=== PATIENT | female | born 1970 | race Caucasian/White ===

== ENCOUNTER 2017-03-21 14:50 | Inpatient (IN) | payer OTHER ==
[2017-03-21] MEDS ORDERED: Sodium Chloride 0.9% 1,000 ML IV ONE ×2 (15:43→16:49)
[2017-03-21] MEDS ORDERED: diphenhydrAMINE 50 MG/ML SDV IVPUSH ONE (15:43)
[2017-03-21] MEDS ORDERED: methylPREDNISolone Sodium Succinate 125 MG/2 ML SDV IVPUSH ONE (15:44)
--- NOTE | 2017-03-21 15:50 | EDM.PDOC ---
ED HPI GENERAL MEDICAL PROBLEM - General Chief Complaint: Neurological Problem Stated Complaint: [facility] Time Seen by Provider: 03/21/17 14:57 Source of Information: Reports: Patient, EMS, Family History Limitations: Reports: Altered Mental Status - History of Present Illness INITIAL COMMENTS - FREE TEXT/NARRATIVE: the patient is a 47-year-old female brought in by ambulance for an episode of syncope and altered mental status. She has a history of chronic neck pain and migraines but is otherwise healthy. She has been on light duty at her job at the [employer], where her also works. She states that she felt fine yesterday. This morning at work she had a migraine headache and took intramuscular sumatriptan. Sometime after this, she walked into her office and told him that she did not feel well. She sat down in his office. He states that gradually, over the course of about 15 minutes she became less responsive, seemed "out of it", had slowed breathing, and also looked dusky. He called for help. At some point she became completely unresponsive but was still breathing with snoring respirations and had a pulse. According to EMS, her oxygen saturation was in the 90s and a respiratory rate was around 12 when they first arrived. She was hypotensive with a blood pressure of 70/30.they started an IV and gave 2 mg of IV Narcan. There was not an immediate response. However on the way in, the patient did become more alert. Her blood pressure also improved. They did have fluids infusing. Patient states that she feels queasy now, she did vomit once here, and feels generally poorly and continues to have neck pain but no other complaint. No headache now. No chest pain or shortness of breath. Mild abdominal discomfort but not significant pain. No lower extremity pain or swelling. Denies history of similar symptoms previously. States that she has not had any of her hydrocodone today. She states that she takes this medication for her neck pain only at night, one tablet before bed. denies ingestion of any other medication today. no recent alcohol. No recent illness or injury. Neck Pain Score (Numeric/FACES): 8 Headache Pain Score (Numeric/FACES): 7 - Related Data Allergies Allergy/AdvReac Type Severity Reaction Status Date / Time No Known Allergies Allergy Verified 03/21/17 20:54 Home Meds: Home Meds Biotin 10,000 mcg PO DAILY 03/21/17 [History] Fexofenadine [Lianna] 180 mg PO DAILY 03/21/17 [History] Hydrocodone/Acetaminophen [Hydrocodon-Acetaminophen 5-325] 1 tab PO ASDIRECTED PRN 03/21/17 [History] L.acidoph,Paracasei, B.lactis [Probiotic] 1 each PO DAILY 03/21/17 [History] Multivitamin with Minerals [Hair, Skin and Nails] 1 tab PO DAILY 03/21/17 [ History] Naproxen Sodium [Aleve] 440 mg PO Q4H PRN 03/21/17 [History] SUMAtriptan [Imitrex] 1 injection SUBCUT ASDIRECTED PRN 03/21/17 [History] Past Medical History HEENT History: Reports: Impaired 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 ENGLISH History: Reports: , Spontaneous Other OB/BYN History: 5x Musculoskeletal History: Reports: Osteoarthritis Neurological History: Reports: Migraines - Past Surgical History HEENT Surgical History: Reports: Tonsillectomy Social & Family History - Family History Family Medical History: Noncontributory - Tobacco Use Smoking Status *Q: Never Smoker Second Hand Smoke Exposure: No - Caffeine Use Caffeine Use: Reports: Coffee - Alcohol Use Days Per Week of Alcohol Use: 0 - Recreational Drug Use Recreational Drug Use: No ED ROS GENERAL - Review of Systems Review Of Systems: See Below Constitutional: Reports: Malaise, Weakness, Fatigue. Denies: Fever HEENT: Reports: No Symptoms Respiratory: Denies: Shortness of Breath, Cough Cardiovascular: Denies: Chest Pain Endocrine: Reports: Fatigue GI/Abdominal: Reports: Nausea : Reports: No Symptoms. Denies: Dysuria, Irregular Menses Musculoskeletal: Reports: Neck Pain Skin: Reports: No Symptoms Neurological: Reports: Headache, Syncope Psychiatric: Reports: No Symptoms Hematologic/Lymphatic: Denies: Easy Bleeding Immunologic: Reports: No Symptoms - Physical Exam Exam: See Below Exam Limited By: No Limitations General Appearance: Alert, Other (mild distress, uncomfortable appearing) Eye Exam: Bilateral Eye: Normal Inspection, PERRL (pupils about 2 mm) Ears: Normal External Exam Nose: Normal Inspection, Normal Mucosa, No Blood Throat/Mouth: Normal Inspection, Normal Lips, Normal Teeth, Normal Gums, Normal Oropharynx, Normal Voice, No Airway Compromise Head Exam: Atraumatic, Normocephalic Neck: Normal Inspection Respiratory/Chest: No Respiratory Distress, Lungs Clear, Normal Breath Sounds, Chest Non-Tender Cardiovascular: Normal Peripheral Pulses, Regular Rate, Rhythm, No Edema, No Murmur GI/Abdominal: Soft, Non-Tender, No Distention. No: Rebound Neuro Exam (Abbreviated): Alert, Oriented, CN II-XII Intact, Normal Cognition, No Motor/Sensory Deficits Back Exam: Normal Inspection Extremities: Normal Inspection Psychiatric: Normal Affect, Normal Mood Skin Exam: Warm, Dry, Intact, Normal Color, No Rash Course - Vital Signs Last Recorded V/S: Last Vital Signs Temp 36.8 C 03/22/17 08:26 Pulse 66 03/22/17 08:26 Resp 15 03/22/17 08:26 BP 134/66 03/22/17 08:26 Pulse Ox 99 03/22/17 08:26 - Orders/Labs/Meds Orders: Active Orders 24 hr Category Date Time Status Sodium Chloride 0.9% [Saline Flush] Med 03/21/17 16:57 Active 10 ml FLUSH ONETIME PRN Medication Orders Hydrocodone Bitart/Acetaminophen ([place] 325-10 Mg) 1 tab PO Q6H PRN PRN Reason: Pain (moderate 4-6) Last Admin: 03/21/17 21:53 Dose: 1 tab Enoxaparin Sodium (Lovenox) 40 mg SUBCUT DAILY GIL Last Admin: 03/22/17 08:05 Dose: 40 mg Hydromorphone HCl (Dilaudid) 0.5 mg IVPUSH Q4H PRN PRN Reason: Pain Sodium Chloride (Saline Flush) 10 ml FLUSH ONETIME PRN PRN Reason: IV FLUSH Last Admin: 03/21/17 17:28 Dose: 10 ml Sumatriptan Succinate (Imitrex) 50 mg PO Q2H PRN PRN Reason: Headache Last Admin: 03/22/17 08:01 Dose: 50 mg Labs: Laboratory Tests 03/21/17 03/21/17 03/21/17 Range/Units 16:10 16:10 16:10 WBC 12.97 H (3.98-10.04) K/mm3 RBC 4.63 (3.98-5.22) M/mm3 Hgb 13.3 (11.2-15.7) gm/L Hct 40.7 (34.1-44.9) % MCV 87.9 (79.4-94.8) fl MCH 28.7 (25.6-32.2) pg MCHC 32.7 (32.2-35.5) g/dl RDW Std Deviation 43.9 (36.4-46.3) fL Plt Count 185 (182-369) K/mm3 MPV 11.6 (9.4-12.3) fl Neut % (Auto) 85.8 H (34.0-71.1) % Lymph % (Auto) 10.9 L (19.3-51.7) % [place] % (Auto) 2.5 L (4.7-12.5) % Eos % (Auto) 0.5 L (0.7-5.8) Baso % (Auto) 0.1 (0.1-1.2) % Neut # (Auto) 11.14 H (1.56-6.13) K/mm3 Lymph # (Auto) 1.42 (1.18-3.74) K/mm3 [place] # (Auto) 0.32 (0.24-0.36) K/mm3 Eos # (Auto) 0.06 (0.04-0.36) K/mm3 Baso # (Auto) 0.01 (0.01-0.08) K/mm3 Manual Slide Review Normal smear D-Dimer, Quantitative (0.19-0.59) mg/L Sodium 140 (136-145) mEq/L Potassium 4.0 (3.5-5.1) mEq/L Chloride 107 (98-107) mEq/L Carbon Dioxide 24 (21-32) mEq/L Anion Gap 13.0 (5-15) BUN 22 H (7-18) mg/dL Creatinine 1.2 H (0.55-1.02) mg/dL Est Cr Clr Drug Dosing 55.15 mL/min Estimated GFR (MDRD) 48 (>60) mL/min BUN/Creatinine Ratio 18.3 H (14-18) Glucose 172 H (74-106) mg/dL Calcium 8.4 L (8.5-10.1) mg/dL Total Bilirubin 0.2 (0.2-1.0) mg/dL AST 21 (15-37) U/L ALT 36 (14-59) U/L Alkaline Phosphatase 104 (46-116) U/L Troponin I 0.030 (0.00-0.056) ng/mL Total Protein 6.7 (6.4-8.2) g/dl Albumin 3.4 (3.4-5.0) g/dl Globulin 3.3 gm/dL Albumin/Globulin Ratio 1.0 (1-2) Free T4 (0.76-1.46) ng/dL TSH 3rd Generation (0.358-3.74) uIU/mL Urine Color (Yellow) Urine Appearance (Clear) Urine pH (5.0-8.0) Ur Specific [place] (1.005-1.030) Urine Protein (Negative) Urine Glucose (UA) (Negative) Urine Ketones (Negative) Urine Occult Blood (Negative) Urine Nitrite (Negative) Urine Bilirubin (Negative) Urine Urobilinogen (0.2-1.0) Ur Leukocyte Esterase (Negative) Urine RBC (0-5) /hpf Urine WBC (0-5) /hpf Ur Epithelial Cells (0-5) /hpf Urine Bacteria (FEW) /hpf Urine Mucus (FEW) /hpf Urine HCG, Qual (NEGATIVE) Salicylates (2.8-20) mg/dL Acetaminophen 0 L (10-30) ug/mL Ethyl Alcohol 0.00 (0.00) gm% 03/21/17 03/21/17 03/21/17 Range/Units 16:10 16:10 17:15 WBC (3.98-10.04) K/mm3 RBC (3.98-5.22) M/mm3 Hgb (11.2-15.7) gm/L Hct (34.1-44.9) % MCV (79.4-94.8) fl MCH (25.6-32.2) pg MCHC (32.2-35.5) g/dl RDW Std Deviation (36.4-46.3) fL Plt Count (182-369) K/mm3 MPV (9.4-12.3) fl Neut % (Auto) (34.0-71.1) % Lymph % (Auto) (19.3-51.7) % [place] % (Auto) (4.7-12.5) % Eos % (Auto) (0.7-5.8) Baso % (Auto) (0.1-1.2) % Neut # (Auto) (1.56-6.13) K/mm3 Lymph # (Auto) (1.18-3.74) K/mm3 [place] # (Auto) (0.24-0.36) K/mm3 Eos # (Auto) (0.04-0.36) K/mm3 Baso # (Auto) (0.01-0.08) K/mm3 Manual Slide Review D-Dimer, Quantitative 1.13 H (0.19-0.59) mg/L Sodium (136-145) mEq/L Potassium (3.5-5.1) mEq/L Chloride (98-107) mEq/L Carbon Dioxide (21-32) mEq/L Anion Gap (5-15) BUN (7-18) mg/dL Creatinine (0.55-1.02) mg/dL Est Cr Clr Drug Dosing mL/min Estimated GFR (MDRD) (>60) mL/min BUN/Creatinine Ratio (14-18) Glucose (74-106) mg/dL Calcium (8.5-10.1) mg/dL Total Bilirubin (0.2-1.0) mg/dL AST (15-37) U/L ALT (14-59) U/L Alkaline Phosphatase (46-116) U/L Troponin I (0.00-0.056) ng/mL Total Protein (6.4-8.2) g/dl Albumin (3.4-5.0) g/dl Globulin gm/dL Albumin/Globulin Ratio (1-2) Free T4 (0.76-1.46) ng/dL TSH 3rd Generation (0.358-3.74) uIU/mL Urine Color (Yellow) Urine Appearance (Clear) Urine pH (5.0-8.0) Ur Specific [place] (1.005-1.030) Urine Protein (Negative) Urine Glucose (UA) (Negative) Urine Ketones (Negative) Urine Occult Blood (Negative) Urine Nitrite (Negative) Urine Bilirubin (Negative) Urine Urobilinogen (0.2-1.0) Ur Leukocyte Esterase (Negative) Urine RBC (0-5) /hpf Urine WBC (0-5) /hpf Ur Epithelial Cells (0-5) /hpf Urine Bacteria (FEW) /hpf Urine Mucus (FEW) /hpf Urine HCG, Qual Negative (NEGATIVE) Salicylates 1.4 L (2.8-20) mg/dL Acetaminophen (10-30) ug/mL Ethyl Alcohol (0.00) gm% 03/21/17 03/21/17 03/21/17 Range/Units 17:15 18:20 18:25 WBC (3.98-10.04) K/mm3 RBC (3.98-5.22) M/mm3 Hgb (11.2-15.7) gm/L Hct (34.1-44.9) % MCV (79.4-94.8) fl MCH (25.6-32.2) pg MCHC (32.2-35.5) g/dl RDW Std Deviation (36.4-46.3) fL Plt Count (182-369) K/mm3 MPV (9.4-12.3) fl Neut % (Auto) (34.0-71.1) % Lymph % (Auto) (19.3-51.7) % [place] % (Auto) (4.7-12.5) % Eos % (Auto) (0.7-5.8) Baso % (Auto) (0.1-1.2) % Neut # (Auto) (1.56-6.13) K/mm3 Lymph # (Auto) (1.18-3.74) K/mm3 [place] # (Auto) (0.24-0.36) K/mm3 Eos # (Auto) (0.04-0.36) K/mm3 Baso # (Auto) (0.01-0.08) K/mm3 Manual Slide Review D-Dimer, Quantitative (0.19-0.59) mg/L Sodium (136-145) mEq/L Potassium (3.5-5.1) mEq/L Chloride (98-107) mEq/L Carbon Dioxide (21-32) mEq/L Anion Gap (5-15) BUN (7-18) mg/dL Creatinine (0.55-1.02) mg/dL Est Cr Clr Drug Dosing mL/min Estimated GFR (MDRD) (>60) mL/min BUN/Creatinine Ratio (14-18) Glucose (74-106) mg/dL Calcium (8.5-10.1) mg/dL Total Bilirubin (0.2-1.0) mg/dL AST (15-37) U/L ALT (14-59) U/L Alkaline Phosphatase (46-116) U/L Troponin I 0.092 H* (0.00-0.056) ng/mL Total Protein (6.4-8.2) g/dl Albumin (3.4-5.0) g/dl Globulin gm/dL Albumin/Globulin Ratio (1-2) Free T4 0.95 (0.76-1.46) ng/dL TSH 3rd Generation 1.535 (0.358-3.74) uIU/mL Urine Color Yellow (Yellow) Urine Appearance Clear (Clear) Urine pH 7.0 (5.0-8.0) Ur Specific [place] 1.020 (1.005-1.030) Urine Protein 1+ H (Negative) Urine Glucose (UA) Negative (Negative) Urine Ketones Negative (Negative) Urine Occult Blood Negative (Negative) Urine Nitrite Negative (Negative) Urine Bilirubin Negative (Negative) Urine Urobilinogen 0.2 (0.2-1.0) Ur Leukocyte Esterase Negative (Negative) Urine RBC 0-5 (0-5) /hpf Urine WBC 5-10 H (0-5) /hpf Ur Epithelial Cells 5-10 H (0-5) /hpf Urine Bacteria Few (FEW) /hpf Urine Mucus Not seen (FEW) /hpf Urine HCG, Qual (NEGATIVE) Salicylates (2.8-20) mg/dL Acetaminophen (10-30) ug/mL Ethyl Alcohol (0.00) gm% Meds: Medications Generic Name Dose Route Start Last Admin Trade Name Freq PRN Reason Stop Dose Admin Hydrocodone Bitart/Acetaminophen 1 tab 03/21/17 20:23 03/21/17 21:53 [place] 325-10 Mg PO 1 tab Q6H PRN Administration Pain (moderate 4-6) Enoxaparin Sodium 40 mg 03/22/17 09:00 03/22/17 08:05 Lovenox SUBCUT 40 mg DAILY GIL Administration Hydromorphone HCl 0.5 mg 03/21/17 20:23 Dilaudid IVPUSH Q4H PRN Pain Sodium Chloride 10 ml 03/21/17 16:57 03/21/17 17:28 Saline Flush FLUSH 10 ml ONETIME PRN Administration IV FLUSH Sumatriptan Succinate 50 mg 03/21/17 20:22 03/22/17 08:01 Imitrex PO 50 mg Q2H PRN Administration Headache Discontinued Medications Generic Name Dose Route Start Last Admin Trade Name Freq PRN Reason Stop Dose Admin Diphenhydramine HCl 25 mg 03/21/17 15:43 03/21/17 15:55 Benadryl IVPUSH 03/21/17 15:44 25 mg ONETIME ONE Administration Sodium Chloride 1,000 mls @ 1,000 mls/hr 03/21/17 15:43 03/21/17 15:55 Normal Saline IV 03/21/17 16:42 1,000 mls/hr ONETIME ONE Administration Sodium Chloride 1,000 mls @ 1,000 mls/hr 03/21/17 16:49 03/21/17 17:48 Normal Saline IV 03/21/17 17:48 1,000 mls/hr ONETIME ONE Administration Sodium Chloride 100 mls @ 65 mls/hr 03/21/17 17:00 03/21/17 17:28 Normal Saline IV 65 mls/hr ASDIRECTED GIL Administration Lactated Ringer's 1,000 mls @ 100 mls/hr 03/21/17 20:30 03/22/17 01:26 Ringers, Lactated IV 03/22/17 05:00 100 mls/hr ASDIRECTED GIL Administration Magnesium Sulfate 2 gm/ Premix 50 mls @ 25 mls/hr 03/22/17 07:00 03/22/17 07: 36 IV 03/22/17 08:59 25 mls/hr ONETIME ONE Administration Iopamidol 100 ml 03/21/17 16:57 03/21/17 17:28 Isovue-370 (76%) IVPUSH 03/21/17 16:58 100 ml ONETIME ONE Administration Iopamidol 50 ml 03/21/17 16:57 03/21/17 17:28 Isovue-370 (76%) IVPUSH 03/21/17 16:58 10 ml ONETIME ONE Administration Methylprednisolone Sodium Succinate 125 mg 03/21/17 15:44 03/21/17 15:56 Solu-Medrol IVPUSH 03/21/17 15:45 125 mg ONETIME ONE Administration - Re-Assessments/Exams Free Text/Narrative Re-Assessment/Exam: 03/21/17 18:[address] Piña who agrees to admit the patient for further care. still no definite explanation for patient's episode of syncope today. Her EKGs today show subtle ST depressions diffusely but no ST elevation and no evidence of acute arrhythmia. Her troponin is negative. She has had normal vital signs throughout her several hour emergency department stay but she continues to feel poorly. She did have an elevated D dimer. Her chest scan showed no evidence of PE. She did have a thyroid abnormality for which radiology recommends further evaluation with ultrasound. I discussed this result with the patient so she is aware. I also ordered thyroid studies as severe hypothyroidism could have explained her symptoms today. Meanwhile, she is not anemic. Her electrolytes are normal. Her renal function and liver function is unremarkable. She has a normal chest x-ray. She has no Tylenol in her system which I think makes narcotic overdose less likely explanation for her episode of altered mental status and hypotension earlier today, particularly given that she had no respiratory depression or hypoxia and her only narcotic prescription also contains acetaminophen. I did review her [facility] and she only has one prescription for narcotics this year which was filled about 4 days ago. She states she is only taken this in the evening. She denies taking any today. May be an unusual reaction to sumatriptan, but sumatriptan was taken many hours before her episode of altered mental status and syncope. Her CT head was negative. She has a normal neurological exam at this time. Seizure or TIA also seem unlikely but are possible. Repeat troponin is pending. Discussed with Dr. Piña who agrees to evaluate the patient for admission. 03/21/17 19:00 repeat trop is mildly elevated at 0.09. The patient continues to state she has no chest pain, SOB, or other sx of [place]. EKG's have showed subtle ST depressions but no elevations. Suspect this mild trop leak is due to period of hypotension/unresponsiveness prior to arrival. Notified Dr. Piña of this result, who is currently returning from the patient's bedside. Departure - Departure Time of Disposition: 19:00 Disposition: Admitted As Inpatient 64 Clinical Impression: Troponin I above reference range Hypotension Qualifiers: Hypotension type: unspecified hypotension type Qualified Code(s): I95.9 - Hypotension, unspecified Altered mental status Qualifiers: Altered mental status type: transient alteration of awareness Qualified Code(s) : R40.4 - Transient alteration of awareness - Discharge Information - My Orders Last 24 Hours: My Active Orders 03/21/17 16:57 Sodium Chloride 0.9% [Saline Flush] 10 ml FLUSH ONETIME PRN - Assessment/Plan Last 24 Hours: My Active Orders 03/21/17 16:57 Sodium Chloride 0.9% [Saline Flush] 10 ml FLUSH ONETIME PRN
--- NOTE | 2017-03-21 15:59 | CT ---
Head CT Technique: Multiple axial sections through the brain were obtained. Intravenous contrast was not utilized. Comparison: No previous intracranial imaging is available. Findings: Mild soft tissue swelling is noted within the left posterior parietal scalp. Ventricles along with basal cisterns and sulci over the convexities appear within normal limits for the patient's age. No abnormal parenchymal densities are seen. No evidence of intracranial hemorrhage. No midline shift or mass effect is seen. Bone window settings were reviewed which shows the visualized sinuses to appear clear. No calvarial abnormality is seen. Impression: 1. Soft tissue swelling within the posterior left scalp. 2. No acute intracranial abnormality is seen. No skull fracture is identified. Diagnostic code #1
[2017-03-21] MEDS ORDERED: Iopamidol 755 MG/ML 50 ML Bottle IVPUSH ONE (16:57)
[2017-03-21] MEDS ORDERED: Sodium Chloride 0.9% 10 ML Syringe FLUSH PRN (16:57)
[2017-03-21] MEDS ORDERED: Iopamidol 755 Mg/ML 100 ML Bottle IVPUSH ONE (16:57)
[2017-03-21] MEDS ORDERED: Sodium Chloride 0.9% 100 ML IV SCH (17:00)
--- NOTE | 2017-03-21 17:55 | CT ---
CT chest Technique: Multiple axial sections through the chest were obtained. Intravenous contrast was utilized. Study has been performed as a pulmonary angiogram protocol. Findings: Pulmonary arteries are moderately well-opacified. No filling defects are appreciated to indicate definite pulmonary embolism. Mediastinum and hilar regions show no adenopathy or mass. Slightly inhomogeneous enhancement is seen of the thyroid gland and thyroid ultrasound will be recommended. No pericardial thickening is seen. Small portion of the visualized upper abdominal structures appears within normal limits. Lung window settings were reviewed which shows no pleural effusion. Lungs appear clear. No pneumothorax is seen. Bone window settings were reviewed which shows mild diffuse degenerative endplate spurring within the spine with scattered disc space narrowing. Impression: 1. Nothing appreciated to indicate pulmonary embolism. 2. Inhomogeneous enhancement of the thyroid gland. Thyroid ultrasound is recommended to further evaluate. 3. No additional abnormality is seen on CT study of the chest performed as a pulmonary angiogram protocol. Diagnostic code #3
--- NOTE | 2017-03-21 20:21 | PCM.HP ---
H&P History of Present Illness - General Date of Service: 03/21/17 Admit Problem/Dx: Admission Diagnosis/Problem Admission Diagnosis/Problem Syncope Source of Information: Patient, Family, Provider History Limitations: Reports: No Limitations - History of Present Illness Initial Comments - Free Text/Narative: 47 year old female with chronic migraines, has never been seen by a neurologist. Migraines started at the age of 86 years old according to the patient. She routinely takes an analgesic with a caffeinated beverage. Today had a migraine, used IM imitex, sleep for 2 hours and returned to work. Experienced diaphoresis, a change in vision, and numbness in upper extremities without precipitating factors. Has a known history of a cervical injury after the [employer]. Has been scheduled for a neurosurgery consult in the next couple of weeks. Onset of Symptoms: Reports: Today, Sudden Symptom Onset Date: 03/21/17 Duration of Symptoms: Reports: Hour(s):, Resolved Prior to Arrival Location: Reports: Head Severity: Moderate Improves with: Reports: Medication Worsens with: Reports: None Associated Symptoms: Reports: Diaphoresis, Weakness Neck Pain Score (Numeric/FACES): 8 - Related Data Allergies/Adverse Reactions: Allergies Allergy/AdvReac Type Severity Reaction Status Date / Time No Known Allergies Allergy Verified 03/21/17 14:58 Home Medications: Home Meds Biotin 10,000 mcg PO DAILY 03/21/17 [History] Fexofenadine [Lianna] 180 mg PO DAILY 03/21/17 [History] Hydrocodone/Acetaminophen [Hydrocodon-Acetaminophen 5-325] 1 tab PO ASDIRECTED PRN 03/21/17 [History] L.acidoph,Paracasei, B.lactis [Probiotic] 1 each PO DAILY 03/21/17 [History] Multivitamin with Minerals [Hair, Skin and Nails] 1 tab PO DAILY 03/21/17 [ History] SUMAtriptan [Imitrex] 1 injection SUBCUT ASDIRECTED PRN 03/21/17 [History] Past Medical History HEENT History: Reports: Impaired Vision [employer] History: Reports: , Spontaneous Other OB/BYN History: 5x Musculoskeletal History: Reports: Osteoarthritis Neurological History: Reports: Migraines - Past Surgical History HEENT Surgical History: Reports: Tonsillectomy Social & Family History - Family History Family Medical History: Noncontributory - Tobacco Use Smoking Status *Q: Never Smoker Second Hand Smoke Exposure: No - Caffeine Use Caffeine Use: Reports: Coffee - Alcohol Use Days Per Week of Alcohol Use: 0 - Recreational Drug Use Recreational Drug Use: No H&P Review of Systems - Review of Systems: Review Of Systems: See Below General: Reports: Weakness, Decreased Appetite HEENT: Reports: No Symptoms Pulmonary: Reports: No Symptoms Cardiovascular: Reports: Syncope Gastrointestinal: Reports: No Symptoms Genitourinary: Reports: No Symptoms Musculoskeletal: Reports: No Symptoms Skin: Reports: No Symptoms Psychiatric: Reports: No Symptoms Neurological: Reports: No Symptoms Hematologic/Lymphatic: Reports: No Symptoms Immunologic: Reports: No Symptoms Exam - Exam Exam: See Below - Vital Signs Vital Signs: Last Vital Signs Temp 35.9 C 03/21/17 14:59 Pulse 68 03/21/17 14:59 Resp 25 H 03/21/17 14:59 BP 119/53 L 03/21/17 14:59 Pulse Ox 100 03/21/17 14:59 Weight: 119.748 kg - Exam Quality Assessment: DVT Prophylaxis General: Alert, Oriented, Cooperative HEENT: Conjunctiva Clear, Nares Patent, Normal Nasal Septum, Pupils Equal, Pupils Reactive, PERRLA Neck: Supple, Trachea Midline Lungs: Clear to Auscultation, Normal Respiratory Effort Cardiovascular: Regular Rate, Bradycardia Abdomen: Normal Bowel Sounds, Soft (Female) Exam: Deferred Rectal (Female) Exam: Deferred Back Exam: Normal Inspection Extremities: Normal Inspection, Normal Pulses Skin: Warm Neurological: Cranial Nerves Intact Neuro Extensive - Mental Status: Alert, Oriented x3, Normal Mood/Affect, Normal Cognition, Memory Intact Neuro Extensive - Motor, Sensory, Reflexes: CN II-XII Intact Psychiatric: Alert, Normal Affect, Normal Mood - Patient Data Result Diagrams: 03/21/17 16:10 03/21/17 16:10 *Q Meaningful Use (ADM) - VTE *Q VTE Criteria *Q: - Stroke *Q Stroke Criteria *Q: - AMI *Q AMI Criteria *Q: - Problem List (1) Syncope SNOMED Code(s): 246672229 ICD Code: R55 - SYNCOPE AND COLLAPSE Status: Acute Current Visit: Yes (2) Radiculopathy of cervical region SNOMED Code(s): 25724832 ICD Code: M54.12 - RADICULOPATHY, CERVICAL REGION Status: Acute Current Visit: Yes (3) Morbid obesity SNOMED Code(s): 366817179, 77562190421286 ICD Code: E66.01 - MORBID (SEVERE) OBESITY DUE TO EXCESS CALORIES Status: Acute Current Visit: Yes Problem List Initiated/Reviewed/Updated: Yes Orders Last 24hrs: Active Orders 24 hr Category Date Time Status Admission Status [Patient Status] [ADT] Routine ADT 03/21/17 19:48 Active Bedrest Bathroom Privileges [RC] ASDIRECTED Care 03/21/17 20:15 Active Cardiac Monitoring [RC] . DIRECTED Care 03/21/17 19:48 Active Neuro Check [RC] BID Care 03/21/17 20:11 Active Orthostatic Vital Signs [RC] ASDIRECTED Care 03/21/17 20:11 Active Consult to Physical Therapy [PT Evaluation and Cons 03/22/17 09:00 Active Treatment] [CONS] Routine Consult to House Worker General [CONS] Routine Cons 03/22/17 09:00 Active Regular Diet [DIET] Diet 03/21/17 Dinner Active Ang Neck wo Cont [MR] Routine Exams 03/22/17 09:00 Ordered Brain wo Cont [MR] Routine Exams 03/22/17 09:00 Ordered Echo Comp wo Cont [US] Routine Exams 03/22/17 11:00 Ordered BASIC METABOLIC PANEL,BMP [CHEM] DAILY Lab 03/22/17 05:00 Ordered BASIC METABOLIC PANEL,BMP [CHEM] DAILY Lab 03/23/17 05:00 Ordered BASIC METABOLIC PANEL,BMP [CHEM] DAILY Lab 03/24/17 05:00 Ordered BASIC METABOLIC PANEL,BMP [CHEM] DAILY Lab 03/25/17 05:00 Ordered CBC WITH AUTO DIFF [HEME] DAILY Lab 03/22/17 05:00 Ordered CBC WITH AUTO DIFF [HEME] DAILY Lab 03/23/17 05:00 Ordered CBC WITH AUTO DIFF [HEME] DAILY Lab 03/24/17 05:00 Ordered CBC WITH AUTO DIFF [HEME] DAILY Lab 03/25/17 05:00 Ordered CRP [C-REACTIVE PROTEIN] [CHEM] Routine Lab 03/22/17 05:00 Ordered MAGNESIUM [CHEM] Routine Lab 03/22/17 05:00 Ordered SEDIMENTATION RATE AUTO [HEME] Routine Lab 03/22/17 05:00 Ordered TROPONIN I [CHEM] Routine Lab 03/22/17 05:00 Ordered Code Status [Resuscitation Status] Routine Resus Stat 03/21/17 20:08 Ordered Medication Orders Sodium Chloride (Normal Saline) 100 mls @ 65 mls/hr IV ASDIRECTED GIL Last Admin: 03/21/17 17:28 Dose: 65 mls/hr Sodium Chloride (Saline Flush) 10 ml FLUSH ONETIME PRN PRN Reason: IV FLUSH Last Admin: 03/21/17 17:28 Dose: 10 ml Assessment/Plan Comment:: Impression: Syncopal episode with cervical radiculopathy Long standing history of migraine, uses IM Imitrex; chronic analgesic use. Insomnia, never sleeps more that 2-4 hours nightly Plan: MRI/MRA head and cervical region 2D echo; will wait for results before anterior circulation eval, carotid duplex. Pain mgt, consider prophylactic meds for migraine, doubt benefit of BB, somewhat bardycardic Query use of Topamax or similar Neurology consult at [place] Will need PCP; has neurosurgery eval scheduled. SW/PT/OT DVT/GI prophylaxis
[2017-03-21] MEDS ORDERED: HYDROmorphone 0.5 MG/0.5 ML Syringe IVPUSH PRN (20:23)
[2017-03-21] MEDS ORDERED: Lactated Ringers 1,000 ML IV SCH (20:30)
[2017-03-21] MEDS: Acetaminophen/HYDROcodone 325-10 MG Tab PO PRN (21:53)
--- NOTE | 2017-03-22 06:45 | CR ---
Chest: Portable view of the chest was obtained. Comparison: No previous chest x-ray. Heart size and mediastinum are normal. Lungs are clear. Bony structures are grossly intact. Impression: 1. Nothing acute is identified on portable chest x-ray. Diagnostic code #1
[2017-03-22] MEDS ORDERED: Magnesium Sulfate/Water 2 GM in Premix Bag 1 BAG IV ONE ×2 (07:00→14:49)
[2017-03-22] MEDS: SUMAtriptan 50 MG Tab PO PRN (08:01)
[2017-03-22] MEDS: Enoxaparin 40 MG/0.4 ML Syringe SUBCUT SCH (08:05)
[2017-03-22] MEDS ORDERED: Gadobenate Dimeglumine 529 MG/ML 20 ML SDV IVPUSH ONE (10:02)
[2017-03-22] MEDS ORDERED: Sodium Chloride 0.9% 10 ML SDV FLUSH ONE (10:15)
--- NOTE | 2017-03-22 11:02 | MR ---
MRI brain (with and without contrast) Technique: T1 sagittal; T2, T2 FLAIR, T1 and diffusion axial; T1 FLAIR coronal; post-gadolinium T1 axial and post-gadolinium T1 FLAIR coronal images were obtained. Comparison: Previous head CT study of 03/21/17 is available. Findings: Ventricles along with basal cisterns and sulci over the convexities are within normal limits for the patient's age. Normal signal void is seen within the major cerebral arteries within the skull base. No abnormal signal is seen within the brain parenchymal. No acute diffusion abnormalities are seen. No areas of abnormal enhancement are seen. Impression: 1. No abnormality is identified on MRI study of the brain. Diagnostic code #1
--- NOTE | 2017-03-22 12:58 | MR ---
MR angiogram of neck Technique: Postcontrast MR angiogram study was obtained of the neck. Multiple reconstructed MIP images were obtained. Findings: Vertebral arteries are widely patent. Basilar artery is patent. Common carotid arteries are patent. Carotid bulbs show no significant narrowing. Internal carotid arteries are widely patent. No dissection is seen. Impression: 1. No abnormality is identified on MR angiogram of neck. Diagnostic code #1
--- NOTE | 2017-03-22 13:33 | PCM.PN ---
- General Info Date of Service: 03/22/17 Functional Status: Reports: pain controlled (mild), tolerating diet, ambulating , urinating - Review of Systems General: Reports: No Symptoms HEENT: Reports: no symptoms Pulmonary: Reports: no symptoms Cardiovascular: Reports: No Symptoms Gastrointestinal: Reports: No symptoms Genitourinary: Reports: no symptoms Musculoskeletal: Reports: no symptoms Skin: Reports: no symptoms Neurological: Reports: Headache, Difficulty Walking (right sided weakness) Psychiatric: Reports: no symptoms - Patient Data Vitals - most recent: Last Vital Signs Temp 36.8 C 03/22/17 08:26 Pulse 66 03/22/17 08:26 Resp 15 03/22/17 08:26 BP 134/66 03/22/17 08:26 Pulse Ox 99 03/22/17 08:26 Orthostatic Blood Pressure [ 140/77 Standing] Orthostatic Blood Pressure [ 132/82 Sitting] Orthostatic Blood Pressure [ 140/75 Supine] Weight - most recent: 121.79 kg I&O - last 24 hours: Intake & Output 03/21/17 03/22/17 03/22/17 22:59 06:59 14:59 Intake Total 1185 180 Output Total 800 Balance 385 180 Lab Results last 24 hrs: Laboratory Results - last 24 hr 03/22/17 03/22/17 03/22/17 Range/Units 02:35 02:35 02:35 WBC 13.50 H (3.98-10.04) K/mm3 RBC 4.60 (3.98-5.22) M/mm3 Hgb 13.1 (11.2-15.7) gm/L Hct 39.5 (34.1-44.9) % MCV 85.9 (79.4-94.8) fl MCH 28.5 (25.6-32.2) pg MCHC 33.2 (32.2-35.5) g/dl RDW Std Deviation 41.9 (36.4-46.3) fL Plt Count 216 (182-369) K/mm3 MPV 11.4 (9.4-12.3) fl Neut % (Auto) 94.6 H (34.0-71.1) % Lymph % (Auto) 4.9 L (19.3-51.7) % [place] % (Auto) 0.4 L (4.7-12.5) % Eos % (Auto) 0 L (0.7-5.8) Baso % (Auto) 0.0 L (0.1-1.2) % Neut # (Auto) 12.77 H (1.56-6.13) K/mm3 Lymph # (Auto) 0.66 L (1.18-3.74) K/mm3 [place] # (Auto) 0.05 L (0.24-0.36) K/mm3 Eos # (Auto) 0.00 L (0.04-0.36) K/mm3 Baso # (Auto) 0.00 L (0.01-0.08) K/mm3 Manual Slide Review Normal smear ESR 16 (0-20) mm/hr Sodium 137 (136-145) mEq/L Potassium 4.1 (3.5-5.1) mEq/L Chloride 105 (98-107) mEq/L Carbon Dioxide 22 (21-32) mEq/L Anion Gap 14.1 (5-15) BUN 16 (7-18) mg/dL Creatinine 1.0 (0.55-1.02) mg/dL Est Cr Clr Drug Dosing 66.18 mL/min Estimated GFR (MDRD) 59 (>60) mL/min BUN/Creatinine Ratio 16.0 (14-18) Glucose 159 H (74-106) mg/dL Calcium 8.8 (8.5-10.1) mg/dL Magnesium 1.7 L (1.8-2.4) mg/dl Troponin I 0.023 (0.00-0.056) ng/mL C-Reactive Protein 0.8 (<1.0) mg/dL Mycoplasma pneumon IgM (NEGATIVE) 03/22/17 Range/Units 02:38 WBC (3.98-10.04) K/mm3 RBC (3.98-5.22) M/mm3 Hgb (11.2-15.7) gm/L Hct (34.1-44.9) % MCV (79.4-94.8) fl MCH (25.6-32.2) pg MCHC (32.2-35.5) g/dl RDW Std Deviation (36.4-46.3) fL Plt Count (182-369) K/mm3 MPV (9.4-12.3) fl Neut % (Auto) (34.0-71.1) % Lymph % (Auto) (19.3-51.7) % [place] % (Auto) (4.7-12.5) % Eos % (Auto) (0.7-5.8) Baso % (Auto) (0.1-1.2) % Neut # (Auto) (1.56-6.13) K/mm3 Lymph # (Auto) (1.18-3.74) K/mm3 [place] # (Auto) (0.24-0.36) K/mm3 Eos # (Auto) (0.04-0.36) K/mm3 Baso # (Auto) (0.01-0.08) K/mm3 Manual Slide Review ESR (0-20) mm/hr Sodium (136-145) mEq/L Potassium (3.5-5.1) mEq/L Chloride (98-107) mEq/L Carbon Dioxide (21-32) mEq/L Anion Gap (5-15) BUN (7-18) mg/dL Creatinine (0.55-1.02) mg/dL Est Cr Clr Drug Dosing mL/min Estimated GFR (MDRD) (>60) mL/min BUN/Creatinine Ratio (14-18) Glucose (74-106) mg/dL Calcium (8.5-10.1) mg/dL Magnesium (1.8-2.4) mg/dl Troponin I (0.00-0.056) ng/mL C-Reactive Protein (<1.0) mg/dL Mycoplasma pneumon IgM Negative (NEGATIVE) Med Orders - Current: Current Medications Hydrocodone Bitart/Acetaminophen ([place] 325-10 Mg) 1 tab PO Q6H PRN PRN Reason: Pain (moderate 4-6) Last Admin: 03/21/17 21:53 Dose: 1 tab Enoxaparin Sodium (Lovenox) 40 mg SUBCUT DAILY GIL Last Admin: 03/22/17 08:05 Dose: 40 mg Hydromorphone HCl (Dilaudid) 0.5 mg IVPUSH Q4H PRN PRN Reason: Pain Sodium Chloride (Saline Flush) 10 ml FLUSH ONETIME PRN PRN Reason: IV FLUSH Last Admin: 03/21/17 17:28 Dose: 10 ml Sumatriptan Succinate (Imitrex) 50 mg PO Q2H PRN PRN Reason: Headache Last Admin: 03/22/17 08:01 Dose: 50 mg Discontinued Medications Diphenhydramine HCl (Benadryl) 25 mg IVPUSH ONETIME ONE Stop: 03/21/17 15:44 Last Admin: 03/21/17 15:55 Dose: 25 mg Gadobenate Dimeglumine (Multihance) 20 ml IVPUSH ONETIME ONE Stop: 03/22/17 10:03 Last Admin: 03/22/17 10:26 Dose: 20 ml Sodium Chloride (Normal Saline) 1,000 mls @ 1,000 mls/hr IV ONETIME ONE Stop: 03/21/17 16:42 Last Admin: 03/21/17 15:55 Dose: 1,000 mls/hr Sodium Chloride (Normal Saline) 1,000 mls @ 1,000 mls/hr IV ONETIME ONE Stop: 03/21/17 17:48 Last Admin: 03/21/17 17:48 Dose: 1,000 mls/hr Sodium Chloride (Normal Saline) 100 mls @ 65 mls/hr IV ASDIRECTED [facility] Last Admin: 03/21/17 17:28 Dose: 65 mls/hr Lactated Ringer's (Ringers, Lactated) 1,000 mls @ 100 mls/hr IV ASDIRECTED [facility] Stop: 03/22/17 05:00 Last Admin: 03/22/17 01:26 Dose: 100 mls/hr Magnesium Sulfate 2 gm/ Premix 50 mls @ 25 mls/hr IV ONETIME ONE Stop: 03/22/17 08:59 Last Admin: 03/22/17 07:36 Dose: 25 mls/hr Iopamidol (Isovue-370 (76%)) 100 ml IVPUSH ONETIME ONE Stop: 03/21/17 16:58 Last Admin: 03/21/17 17:28 Dose: 100 ml Iopamidol (Isovue-370 (76%)) 50 ml IVPUSH ONETIME ONE Stop: 03/21/17 16:58 Last Admin: 03/21/17 17:28 Dose: 10 ml Methylprednisolone Sodium Succinate (Solu-Medrol) 125 mg IVPUSH ONETIME ONE Stop: 03/21/17 15:45 Last Admin: 03/21/17 15:56 Dose: 125 mg Sodium Chloride (Normal Saline) 20 ml FLUSH ONETIME ONE Stop: 03/22/17 10:16 Last Admin: 03/22/17 10:27 Dose: 20 ml - Exam Quality Assessment: DVT prophylaxis General: alert, oriented, cooperative, no acute distress HEENT: Pupils equal, Pupils reactive, EOMI Neck: supple, trachea midline, no JVD Lungs: Clear to auscultation, Normal respiratory effort Cardiovascular: Regular Rate, Regular Rhythm Abdomen: bowel sounds present, soft, no tenderness, no distension (Female) Exam: Deferred Back Exam: Normal Inspection Extremities: normal pulses Skin: warm Neurological: no new focal deficit, normal speech Psy/Mental Status: alert, normal affect, normal mood - Problem List & Annotations (1) Syncope SNOMED Code(s): 564716110 Code(s): R55 - SYNCOPE AND COLLAPSE Status: Acute Current Visit: Yes (2) Radiculopathy of cervical region SNOMED Code(s): 29631965 Code(s): M54.12 - RADICULOPATHY, CERVICAL REGION Status: Acute Current Visit: Yes (3) Morbid obesity SNOMED Code(s): 450256763, 01145169844677 Code(s): E66.01 - MORBID (SEVERE) OBESITY DUE TO EXCESS CALORIES Status: Acute Current Visit: Yes - Problem List Review Problem List Initiated/Reviewed/Updated: Yes - My Orders Last 24 Hours: My Active Orders 03/21/17 20:08 Code Status [Resuscitation Status] Routine 03/21/17 20:11 Neuro Check [RC] BID Orthostatic Vital Signs [RC] ASDIRECTED 03/21/17 20:15 Bedrest Bathroom Privileges [RC] ASDIRECTED 03/21/17 20:22 SUMAtriptan [Imitrex] 50 mg PO Q2H PRN 03/21/17 20:23 Acetaminophen/HYDROcodone [[place] 325-10 MG] 1 tab PO Q6H PRN HYDROmorphone [Dilaudid] 0.5 mg IVPUSH Q4H PRN 03/21/17 20:43 Antiembolic Devices [RC] 10,22 PRAVEEN Hose [Antiembolic Hose] [OM.PC] Routine 03/21/17 Dinner Regular Diet [DIET] 03/22/17 09:00 Consult to Physical Therapy [PT Evaluation and Treatment] [CONS] Routine Consult to [employer] [CONS] Routine Enoxaparin [Lovenox] 40 mg SUBCUT DAILY 03/22/17 16:00 STREP PNEUMONIAE ANTIGEN [MREF] Routine 03/23/17 05:00 BASIC METABOLIC PANEL,BMP [CHEM] DAILY CBC WITH AUTO DIFF [HEME] DAILY 03/24/17 05:00 BASIC METABOLIC PANEL,BMP [CHEM] DAILY CBC WITH AUTO DIFF [HEME] DAILY 03/24/17 07:00 CBC W/O DIFF,HEMOGRAM [HEME] MOTH@0700 03/25/17 05:00 BASIC METABOLIC PANEL,BMP [CHEM] DAILY CBC WITH AUTO DIFF [HEME] DAILY 03/28/17 07:00 CBC W/O DIFF,HEMOGRAM [HEME] MOTH@69903/31/17 07:00 CBC W/O DIFF,HEMOGRAM [HEME] MOTH@00 04/04/17 07:00 CBC W/O DIFF,HEMOGRAM [HEME] MOTH@69904/07/17 07:00 CBC W/O DIFF,HEMOGRAM [HEME] MOTH@69904/11/17 07:00 CBC W/O DIFF,HEMOGRAM [HEME] MOTH@0700 - Plan Plan:: Impression: Syncopal episode with cervical radiculopathy Episode of NSVT Long standing history of migraine, uses IM Imitrex; chronic analgesic use. Insomnia, never sleeps more that 2-4 hours nightly Plan: MRI/MRA head and cervical region were unremarkable 2D echo; await results. Pain mgt, consider prophylactic meds for migraine, doubt benefit of BB, somewhat bardycardic Start Topamax tonight and add MgO. Appt needed at [place]: neuro; neurosurgery; cardiology; PCP. SW/PT/OT DVT/GI prophylaxis
[2017-03-22] MEDS: Topiramate 25 MG Tab PO SCH (17:24)
[2017-03-22] MEDS: Magnesium Oxide 400 MG Tab PO SCH (20:23)
[2017-03-22] MEDS: Acetaminophen/HYDROcodone 325-10 MG Tab PO PRN (20:23)
--- NOTE | 2017-03-23 07:31 | PCM.SN ---
- Free Text/Narrative Note: Patient described episodes of passing out while , query arrhythmia related, evaluate for common causes: low Mg; CAD; diagnosis of exclusion, idiopathic vent tachycardia. 2D echo is pending; given patient's age would also consider stress test.
[2017-03-23] MEDS: Enoxaparin 40 MG/0.4 ML Syringe SUBCUT SCH (08:07)
[2017-03-23] MEDS: Magnesium Oxide 400 MG Tab PO SCH ×2 (08:07→21:47)
--- NOTE | 2017-03-23 13:44 | PCM.PN ---
- General Info Date of Service: 03/23/17 Admission Dx/Problem (Free Text): Admission Diagnosis/Problem Admission Diagnosis/Problem Syncope Patient is feeling much better this morning. No headache as of yet this morning. Slept well. Neck pain/stiffness and radicular discomfort to shoulders and arms is improved today, ROM to neck is improved today. VSS. No arrhythmias noted on telemetry overnight, no further runs of V-Tach. No dizziness today. Appetite is good. She was up with PT, did well. Functional Status: Reports: pain controlled, tolerating diet, ambulating, urinating. Denies: new symptoms - Review of Systems General: Reports: No Symptoms HEENT: Reports: no symptoms Pulmonary: Reports: no symptoms Cardiovascular: Reports: No Symptoms. Denies: Chest Pain, Palpitations, Dyspnea on Exertion Gastrointestinal: Reports: No symptoms Genitourinary: Reports: no symptoms Musculoskeletal: Reports: neck pain, shoulder pain, arm pain Skin: Reports: no symptoms Neurological: Reports: Numbness, Tingling, Weakness (rt upper and lower extremity strengths decreased to 4/5). Denies: Confusion, Headache Psychiatric: Reports: no symptoms - Patient Data Vitals - most recent: Last Vital Signs Temp 99.0 F 03/23/17 08:11 Pulse 67 03/23/17 08:11 Resp 16 03/23/17 08:11 BP 123/79 03/23/17 08:11 Pulse Ox 94 L 03/23/17 08:11 Orthostatic Blood Pressure [ 140/77 Standing] Orthostatic Blood Pressure [ 132/82 Sitting] Orthostatic Blood Pressure [ 140/75 Supine] Weight - most recent: 266 lb 11.2 oz I&O - last 24 hours: Intake & Output 03/22/17 03/23/17 03/23/17 22:59 06:59 14:59 Intake Total 1000 450 180 Output Total 1950 700 Balance -950 -250 180 Lab Results last 24 hrs: Laboratory Results - last 24 hr 03/23/17 03/23/17 Range/Units 04:59 04:59 WBC 13.24 H (3.98-10.04) K/mm3 RBC 4.42 (3.98-5.22) M/mm3 Hgb 12.9 (11.2-15.7) gm/L Hct 38.6 (34.1-44.9) % MCV 87.3 (79.4-94.8) fl MCH 29.2 (25.6-32.2) pg MCHC 33.4 (32.2-35.5) g/dl RDW Std Deviation 44.0 (36.4-46.3) fL Plt Count 219 (182-369) K/mm3 MPV 12.1 (9.4-12.3) fl Neut % (Auto) 64.8 (34.0-71.1) % Lymph % (Auto) 28.5 (19.3-51.7) % [place] % (Auto) 5.7 (4.7-12.5) % Eos % (Auto) 0.9 (0.7-5.8) Baso % (Auto) 0.1 (0.1-1.2) % Neut # (Auto) 8.59 H (1.56-6.13) K/mm3 Lymph # (Auto) 3.77 H (1.18-3.74) K/mm3 [place] # (Auto) 0.75 H (0.24-0.36) K/mm3 Eos # (Auto) 0.12 (0.04-0.36) K/mm3 Baso # (Auto) 0.01 (0.01-0.08) K/mm3 Sodium 138 (136-145) mEq/L Potassium 3.9 (3.5-5.1) mEq/L Chloride 106 (98-107) mEq/L Carbon Dioxide 24 (21-32) mEq/L Anion Gap 11.9 (5-15) BUN 19 H (7-18) mg/dL Creatinine 0.9 (0.55-1.02) mg/dL Est Cr Clr Drug Dosing 73.53 mL/min Estimated GFR (MDRD) > 60 (>60) mL/min BUN/Creatinine Ratio 21.1 H (14-18) Glucose 93 (74-106) mg/dL Calcium 8.5 (8.5-10.1) mg/dL Magnesium 2.0 (1.8-2.4) mg/dl Troponin I < 0.017 (0.00-0.056) ng/mL Med Orders - Current: Current Medications Hydrocodone Bitart/Acetaminophen ([place] 325-10 Mg) 1 tab PO Q6H PRN PRN Reason: Pain (moderate 4-6) Last Admin: 03/22/17 20:23 Dose: 1 tab Enoxaparin Sodium (Lovenox) 40 mg SUBCUT DAILY [facility] Last Admin: 03/23/17 08:07 Dose: 40 mg Hydromorphone HCl (Dilaudid) 0.5 mg IVPUSH Q4H PRN PRN Reason: Pain Magnesium Oxide (Magnesium Oxide) 400 mg PO BID [facility] Last Admin: 03/23/17 08:07 Dose: 400 mg Sodium Chloride (Saline Flush) 10 ml FLUSH ONETIME PRN PRN Reason: IV FLUSH Last Admin: 03/21/17 17:28 Dose: 10 ml Sumatriptan Succinate (Imitrex) 50 mg PO Q2H PRN PRN Reason: Headache Last Admin: 03/22/17 08:01 Dose: 50 mg Topiramate (Topamax) 25 mg PO QPM [facility] Last Admin: 03/22/17 17:24 Dose: 25 mg Discontinued Medications Diphenhydramine HCl (Benadryl) 25 mg IVPUSH ONETIME ONE Stop: 03/21/17 15:44 Last Admin: 03/21/17 15:55 Dose: 25 mg Gadobenate Dimeglumine (Multihance) 20 ml IVPUSH ONETIME ONE Stop: 03/22/17 10:03 Last Admin: 03/22/17 10:26 Dose: 20 ml Sodium Chloride (Normal Saline) 1,000 mls @ 1,000 mls/hr IV ONETIME ONE Stop: 03/21/17 16:42 Last Admin: 03/21/17 15:55 Dose: 1,000 mls/hr Sodium Chloride (Normal Saline) 1,000 mls @ 1,000 mls/hr IV ONETIME ONE Stop: 03/21/17 17:48 Last Admin: 03/21/17 17:48 Dose: 1,000 mls/hr Sodium Chloride (Normal Saline) 100 mls @ 65 mls/hr IV ASDIRECTED [facility] Last Admin: 03/21/17 17:28 Dose: 65 mls/hr Lactated Ringer's (Ringers, Lactated) 1,000 mls @ 100 mls/hr IV ASDIRECTED [facility] Stop: 03/22/17 05:00 Last Admin: 03/22/17 01:26 Dose: 100 mls/hr Magnesium Sulfate 2 gm/ Premix 50 mls @ 25 mls/hr IV ONETIME ONE Stop: 03/22/17 08:59 Last Admin: 03/22/17 07:36 Dose: 25 mls/hr Magnesium Sulfate 2 gm/ Premix 50 mls @ 25 mls/hr IV ONETIME ONE Stop: 03/22/17 16:48 Last Admin: 03/22/17 15:22 Dose: Not Given Iopamidol (Isovue-370 (76%)) 100 ml IVPUSH ONETIME ONE Stop: 03/21/17 16:58 Last Admin: 03/21/17 17:28 Dose: 100 ml Iopamidol (Isovue-370 (76%)) 50 ml IVPUSH ONETIME ONE Stop: 03/21/17 16:58 Last Admin: 03/21/17 17:28 Dose: 10 ml Methylprednisolone Sodium Succinate (Solu-Medrol) 125 mg IVPUSH ONETIME ONE Stop: 03/21/17 15:45 Last Admin: 03/21/17 15:56 Dose: 125 mg Sodium Chloride (Normal Saline) 20 ml FLUSH ONETIME ONE Stop: 03/22/17 10:16 Last Admin: 03/22/17 10:27 Dose: 20 ml - Exam Quality Assessment: DVT prophylaxis General: alert, oriented, cooperative, no acute distress HEENT: Pupils equal, Pupils reactive, EOMI, Mucous membr. moist/pink Neck: supple Lungs: Clear to auscultation, Normal respiratory effort Cardiovascular: Regular Rate, Regular Rhythm Abdomen: bowel sounds present, soft, no tenderness, no distension (Female) Exam: Deferred Extremities: no edema, calf tenderness Peripheral Pulses: 1+: Dorsalis Pedis (L), Dorsalis Pedis (R) Skin: warm, dry Neurological: normal speech, normal tone, cranial nerves intact. No: strength equal bilateral (strengths to rt upper and lower extremity 4/5 ) Psy/Mental Status: alert, normal affect, normal mood - Problem List & Annotations (1) Migraine SNOMED Code(s): 71380615 Code(s): G43.909 - MIGRAINE, UNSP, NOT INTRACTABLE, WITHOUT STATUS MIGRAINOSUS Status: Chronic Priority: High Current Visit: Yes (2) Syncope SNOMED Code(s): 470978006 Code(s): R55 - SYNCOPE AND COLLAPSE Status: Acute Priority: High Current Visit: Yes Qualifiers: Syncope type: unspecified Qualified Code(s): R55 - Syncope and collapse (3) Radiculopathy of cervical region SNOMED Code(s): 64347805 Code(s): M54.12 - RADICULOPATHY, CERVICAL REGION Status: Acute Priority: High Current Visit: Yes Annotation/Comment:: due to work related injury (4) Morbid obesity SNOMED Code(s): 082231695, 89987475950110 Code(s): E66.01 - MORBID (SEVERE) OBESITY DUE TO EXCESS CALORIES Status: Acute Priority: High Current Visit: Yes Qualifiers: Obesity type: unspecified obesity type Qualified Code(s): E66.01 - Morbid ( severe) obesity due to excess calories (5) Hypotension SNOMED Code(s): 96205585 Code(s): I95.9 - HYPOTENSION, UNSPECIFIED Status: Resolved Priority: High Current Visit: Yes Qualifiers: Hypotension type: unspecified hypotension type Qualified Code(s): I95.9 - Hypotension, unspecified - Problem List Review Problem List Initiated/Reviewed/Updated: Yes - My Orders Last 24 Hours: My Active Orders 03/23/17 13:33 Myocardial Perf Spect Multi [NM] Routine 03/23/17 Dinner NPO After Midnight [Nothing per Oral After Midnight Diet] [DIET] - Plan Plan:: Impression: Syncopal episode Episode of NSVT Long standing history of migraine -uses IM Imitrex almost daily -chronic analgesic use. Insomnia, never sleeps more that 2-4 hours nightly- chronic Cervical radiculopathy -Due to work related injury -In the process of evaluation through PCP Plan: MRI/MRA head and cervical region were unremarkable 2D echo; await results. Stress test tomorrow as recommended by Dr. Piña Pain mgt, consider prophylactic meds for migraine, doubt benefit of BB, somewhat bardycardic -Start Topamax increasing taper and add Magnesium Appt needed at DC: neuro; neurosurgery; cardiology; PCP. SW/PT/OT DVT/GI prophylaxis Plan likely dc home tomorrow after stress test and echo results returned. Patient is Full Code status
[2017-03-23] MEDS: Topiramate 25 MG Tab PO SCH (17:16)
[2017-03-23] MEDS: Acetaminophen/HYDROcodone 325-10 MG Tab PO PRN (21:47)
[2017-03-24] MEDS ORDERED: Sodium Chloride 0.9% 10 ML Syringe FLUSH SCH (07:30)
[2017-03-24 09:33] VITALS: BP 133/85
[2017-03-24] MEDS: Enoxaparin 40 MG/0.4 ML Syringe SUBCUT SCH (09:35)
[2017-03-24] MEDS: Magnesium Oxide 400 MG Tab PO SCH (09:35)
[2017-03-24] MEDS: SUMAtriptan 50 MG Tab PO PRN (09:37)
[2017-03-24] MEDS: Acetaminophen/HYDROcodone 325-10 MG Tab PO PRN (09:37)
--- NOTE | 2017-03-24 09:54 | PCM.DCSUM1 ---
[id number] ED for syncopal episode, hypotension. She has history of chronic migraines, has never been seen by a neurologist. Migraines started at the age of 86 years old according to the patient. She routinely takes an analgesic with a caffeinated beverage or imitrex for relief. Today had a migraine, used IM imitex, sleep for 2 hours and returned to work with progressive symptoms of generally not feeling well to syncope with hypotension she also experienced diaphoresis, a change in vision, and numbness in upper extremities without precipitating factors. She has a known recent history of a cervical injury after the [employer], injury has been within the last month or so; has been scheduled for a neurosurgery consult in the next couple of weeks through [employer] provider and evaluation. ER evaluation was with negative head CT, CXR unremarkable. D-dimer was elevated , negative CTA for PE but with evidence of inhomogenous thyroid gland. Labs showed slight elevation of WBC and creatinine, glucose 172, troponin was slightly elevated as well. Hospitalist service was consulted for admission for syncope, hypotension and elevated troponin. Course of hospital stay was fairly unremarkable, no further episodes of syncope or near syncope. MRI of brain, MRA of cervical spine obtained and negative. Stress test was obtained with negative electrographic portion, imaging is with small area of reversible ischemia to the anterior wall; the imaging reports were received after patient was discharged. She had 2 episodes of self terminating ventricular tachycardia overnight. Electrolytes were WNL during this. Patient was asymptomatic/sleeping. She will be discharged home with outpatient follow up/consult with Cardiology, Neurology, 48 hour holter monitor and thyroid US to be reviewed with patient by PCP Nyasia Potts PA-C. She will have follow up with PCP within one week of discharge. Neurosurgery evaluation is being arranged with work comp. - Discharge Data Discharge Date: 03/24/17 (admit date 03/21/17) Discharge Disposition: Home, Self-Care 01 Condition: Good - Discharge Diagnosis/Problem(s) (1) Migraine SNOMED Code(s): 22007030 ICD Code: G43.909 - MIGRAINE, UNSP, NOT INTRACTABLE, WITHOUT STATUS MIGRAINOSUS Status: Chronic Priority: High (2) Syncope SNOMED Code(s): 598446446 ICD Code: R55 - SYNCOPE AND COLLAPSE Status: Acute Priority: High Qualifiers: Syncope type: unspecified Qualified Code(s): R55 - Syncope and collapse (3) Radiculopathy of cervical region SNOMED Code(s): 42616550 ICD Code: M54.12 - RADICULOPATHY, CERVICAL REGION Status: Acute Priority : High Problem Details: due to work related injury (4) Morbid obesity SNOMED Code(s): 842317221, 79585239093728 ICD Code: E66.01 - MORBID (SEVERE) OBESITY DUE TO EXCESS CALORIES Status: Chronic Priority: High Qualifiers: Obesity type: unspecified obesity type Qualified Code(s): E66.01 - Morbid ( severe) obesity due to excess calories (5) Hypotension SNOMED Code(s): 59553386 ICD Code: I95.9 - HYPOTENSION, UNSPECIFIED Status: Resolved Priority: High Qualifiers: Hypotension type: unspecified hypotension type Qualified Code(s): I95.9 - Hypotension, unspecified - Patient Summary/Data Operative Procedure(s) Performed: None Complications: None Consults: Consultations 03/22/17 09:00 Consult to Physical Therapy [PT Evaluation and Treatment] [CONS] Routine Consult to Diabetes Clinical Manager [CONS] Routine Labs Pending at D/C: Thyroid US to be done on outpatient basis with follow up with PCP, Nyasia Potts for result review 48 hour holter monitor with results to PCP as above Follow up with PCP within one week of discharge Follow up for stress test final results with PCP Follow up/Consult with Cardiology for dysrhythmia/V-tach episodes Follow up with Neurology for migraine headaches/radiculopathy; with Neurosurgery for radiculopathy/degenerative disc disease/work comp accident Recommended Follow-up Testing/Procedures: Follow up with PCP, Nyasia Potts PA-C within 7 days of discharge--Imaging portion of stress testing to be sent to [facility] Thyroid Ultrasound on March 25 2017 at 2:00 pm as outpatient to be sent to [facility] Holter monitor to be sent to [facility] for review with patient Follow up/Consult with Cardiology as scheduled on may 04 in [place] Follow up/Consult with Neurology for migraine headache as scheduled on may 04 in [place] and with neurosurgery as you are presently working on with [employer] for Neurosurgery for neck pain with radiculopathy Work restrictions per prior instruction with Work Comp Provider Planned Operative Procedure(s) after DC: None Hospital Course: As above - Patient Instructions Diet: Heart Healthy Diet Activity: As Tolerated Showering/Bathing: May Shower Notify Provider of: Fever, Increased Pain, Nausea and/or Vomiting (dizziness, syncope, palpitations, chest pains, shortness of breath) - Discharge Plan Prescriptions/Med Rec: Magnesium Oxide 400 mg PO BID #60 tablet Topiramate [Topamax] 25 mg PO QPM #120 tablet Home Medications: Home Meds Pantogar 1 mg PO DAILY 07/26/15 [History] Zinc 50 mg PO DAILY 07/26/15 [History] traMADol HCl [Tramadol HCl] 50 mg PO Q6H PRN #15 tablet 07/26/15 [Rx] Biotin 10,000 mcg PO DAILY 03/21/17 [History] Fexofenadine [Lianna] 180 mg PO DAILY 03/21/17 [History] Hydrocodone/Acetaminophen [Hydrocodon-Acetaminophen 5-325] 1 tab PO ASDIRECTED PRN 03/21/17 [History] L.acidoph,Paracasei, B.lactis [Probiotic] 1 each PO DAILY 03/21/17 [History] Multivitamin with Minerals [Hair, Skin and Nails] 1 tab PO DAILY 03/21/17 [ History] Naproxen Sodium [Aleve] 440 mg PO Q4H PRN 03/21/17 [History] SUMAtriptan [Imitrex] 1 injection SUBCUT ASDIRECTED PRN 03/21/17 [History] Magnesium Oxide 400 mg PO BID #60 tablet 03/24/17 [Rx] Topiramate [Topamax] 25 mg PO QPM #120 tablet 03/24/17 [Rx] Patient Handouts: Cervical Radiculopathy, Syncope, [id number], Migraine Headache, Obesity, [id number] Referrals: Corazon George DO [Physician] - 05/04/17 11:00 am (This is the [employer], appt. is in [place], at [facility] at [address] in [place] go to front main entrance come 15 minutes prior to appoinment with ID and insurance cards. ) Opal Adrian MD [Ordering Only Provider] - 05/04/17 12:00 pm Nyasia Potts PA-C [Primary Care Provider] - 03/30/17 11:00 am - Discharge Summary/Plan Comment DC Time >30 min.: Yes (40 min) - General Info Date of Service: 03/24/17 Admission Dx/Problem (Free Text: Admission Diagnosis/Problem Admission Diagnosis/Problem Syncope Patient is feeling much better this morning. No headache this morning. Slept well. Neck pain/stiffness and radicular discomfort to shoulders and arms is improved today, ROM to neck is improved today. VSS. No arrhythmias noted on telemetry overnight, no further runs of V-Tach. No dizziness today. Appetite is good. She was up with PT, did well. Functional Status: Reports: pain controlled, tolerating diet, ambulating, urinating. Denies: new symptoms - Review of Systems General: Reports: Weakness HEENT: Reports: no symptoms Pulmonary: Reports: no symptoms Cardiovascular: Reports: No Symptoms Gastrointestinal: Reports: No symptoms Genitourinary: Reports: no symptoms Musculoskeletal: Reports: neck pain Neurological: Reports: Weakness (rt upper extremity) Psychiatric: Reports: no symptoms - Patient Data Vitals - Most Recent: Last Vital Signs Temp 97.9 F 03/24/17 09:32 Pulse 64 03/24/17 09:32 Resp 22 H 03/24/17 09:32 BP 133/85 03/24/17 09:32 Pulse Ox 100 03/24/17 09:32 Orthostatic Blood Pressure [ 140/77 Standing] Orthostatic Blood Pressure [ 132/82 Sitting] Orthostatic Blood Pressure [ 140/75 Supine] Weight - Most Recent: 264 lb I&O - Last 24 hours: Intake & Output 03/23/17 03/24/17 03/24/17 22:59 06:59 14:59 Intake Total 240 475 Output Total 1600 Balance 240 -1125 Lab Results - Last 24 hrs: Laboratory Results - last 24 hr 03/24/17 03/24/17 Range/Units 06:30 06:30 WBC 6.92 (3.98-10.04) K/mm3 RBC 4.86 (3.98-5.22) M/mm3 Hgb 13.9 (11.2-15.7) gm/L Hct 42.3 (34.1-44.9) % MCV 87.0 (79.4-94.8) fl MCH 28.6 (25.6-32.2) pg MCHC 32.9 (32.2-35.5) g/dl RDW Std Deviation 45.1 (36.4-46.3) fL Plt Count 219 (182-369) K/mm3 MPV 11.5 (9.4-12.3) fl Neut % (Auto) 45.2 (34.0-71.1) % Lymph % (Auto) 43.1 (19.3-51.7) % [place] % (Auto) 8.1 (4.7-12.5) % Eos % (Auto) 3.0 (0.7-5.8) Baso % (Auto) 0.3 (0.1-1.2) % Neut # (Auto) 3.13 (1.56-6.13) K/mm3 Lymph # (Auto) 2.98 (1.18-3.74) K/mm3 [place] # (Auto) 0.56 H (0.24-0.36) K/mm3 Eos # (Auto) 0.21 (0.04-0.36) K/mm3 Baso # (Auto) 0.02 (0.01-0.08) K/mm3 Sodium 137 (136-145) mEq/L Potassium 4.1 (3.5-5.1) mEq/L Chloride 105 (98-107) mEq/L Carbon Dioxide 24 (21-32) mEq/L Anion Gap 12.1 (5-15) BUN 15 (7-18) mg/dL Creatinine 0.9 (0.55-1.02) mg/dL Est Cr Clr Drug Dosing 73.53 mL/min Estimated GFR (MDRD) > 60 (>60) mL/min BUN/Creatinine Ratio 16.7 (14-18) Glucose 84 (74-106) mg/dL Calcium 8.4 L (8.5-10.1) mg/dL Magnesium 2.0 (1.8-2.4) mg/dl [facility] Results - Last 24 hrs: Microbiology 03/22/17 12:00 Streptococcus pneumoniae Antigen (M - Final Urine Med Orders - Current: Current Medications Hydrocodone Bitart/Acetaminophen ([place] 325-10 Mg) 1 tab PO Q6H PRN PRN Reason: Pain (moderate 4-6) Last Admin: 03/24/17 09:37 Dose: 1 tab Enoxaparin Sodium (Lovenox) 40 mg SUBCUT DAILY [facility] Last Admin: 03/24/17 09:35 Dose: 40 mg Hydromorphone HCl (Dilaudid) 0.5 mg IVPUSH Q4H PRN PRN Reason: Pain Magnesium Oxide (Magnesium Oxide) 400 mg PO BID [facility] Last Admin: 03/24/17 09:35 Dose: 400 mg Sodium Chloride (Saline Flush) 10 ml FLUSH ONETIME PRN PRN Reason: IV FLUSH Last Admin: 03/21/17 17:28 Dose: 10 ml Sodium Chloride (Saline Flush) 10 ml FLUSH ONETIME [facility] Stop: 03/24/17 10:00 Last Admin: 03/24/17 07:28 Dose: 10 ml Sumatriptan Succinate (Imitrex) 50 mg PO Q2H PRN PRN Reason: Headache Last Admin: 03/24/17 09:37 Dose: 50 mg Topiramate (Topamax) 25 mg PO QPM [facility] Last Admin: 03/23/17 17:16 Dose: 25 mg Discontinued Medications Diphenhydramine HCl (Benadryl) 25 mg IVPUSH ONETIME ONE Stop: 03/21/17 15:44 Last Admin: 03/21/17 15:55 Dose: 25 mg Gadobenate Dimeglumine (Multihance) 20 ml IVPUSH ONETIME ONE Stop: 03/22/17 10:03 Last Admin: 03/22/17 10:26 Dose: 20 ml Sodium Chloride (Normal Saline) 1,000 mls @ 1,000 mls/hr IV ONETIME ONE Stop: 03/21/17 16:42 Last Admin: 03/21/17 15:55 Dose: 1,000 mls/hr Sodium Chloride (Normal Saline) 1,000 mls @ 1,000 mls/hr IV ONETIME ONE Stop: 03/21/17 17:48 Last Admin: 03/21/17 17:48 Dose: 1,000 mls/hr Sodium Chloride (Normal Saline) 100 mls @ 65 mls/hr IV ASDIRECTED [facility] Last Admin: 03/21/17 17:28 Dose: 65 mls/hr Lactated Ringer's (Ringers, Lactated) 1,000 mls @ 100 mls/hr IV ASDIRECTED [facility] Stop: 03/22/17 05:00 Last Admin: 03/22/17 01:26 Dose: 100 mls/hr Magnesium Sulfate 2 gm/ Premix 50 mls @ 25 mls/hr IV ONETIME ONE Stop: 03/22/17 08:59 Last Admin: 03/22/17 07:36 Dose: 25 mls/hr Magnesium Sulfate 2 gm/ Premix 50 mls @ 25 mls/hr IV ONETIME ONE Stop: 03/22/17 16:48 Last Admin: 03/22/17 15:22 Dose: Not Given Iopamidol (Isovue-370 (76%)) 100 ml IVPUSH ONETIME ONE Stop: 03/21/17 16:58 Last Admin: 03/21/17 17:28 Dose: 100 ml Iopamidol (Isovue-370 (76%)) 50 ml IVPUSH ONETIME ONE Stop: 03/21/17 16:58 Last Admin: 03/21/17 17:28 Dose: 10 ml Methylprednisolone Sodium Succinate (Solu-Medrol) 125 mg IVPUSH ONETIME ONE Stop: 03/21/17 15:45 Last Admin: 03/21/17 15:56 Dose: 125 mg Regadenoson (Lexiscan) 0.4 mg IVPUSH ONETIME ONE Stop: 03/24/17 07:22 Last Admin: 03/24/17 07:29 Dose: 0.4 mg Sodium Chloride (Normal Saline) 20 ml FLUSH ONETIME ONE Stop: 03/22/17 10:16 Last Admin: 03/22/17 10:27 Dose: 20 ml - Exam Quality Assessment: Reports: DVT prophylaxis General: Reports: alert, oriented, cooperative, no acute distress HEENT: Reports: Pupils equal, Pupils reactive, EOMI, Mucous membr. moist/pink Neck: Reports: supple Lungs: Reports: Clear to auscultation, Normal respiratory effort Cardiovascular: Reports: Regular Rate, Regular Rhythm Abdomen: Reports: bowel sounds present, soft, no tenderness, no distension (Female) Exam: Deferred Rectal (Female) Exam: Deferred Extremities: Reports: no edema Skin: Reports: warm, dry, intact Neurological: Denies: strength equal bilateral (rt upper extremity 4/5) Psy/Mental Status: Reports: alert, normal affect, normal mood, anxious *Q Meaningful Use (DIS) - VTE *Q VTE Criteria *Q: - Stroke *Q Stroke Criteria *Q: - AMI *Q AMI Criteria *Q:
--- NOTE | 2017-03-24 13:34 | NM ---
Cardiolite cardiac exam Technique: I have data stating the patient was stressed utilizing Lexiscan protocol. Stress dose of technetium 99m Cardiolite was 11.4 mCi. Rest dose was 29.5 mCi. SPECT imaging was obtained in 3 planes for both portions of the study. Study was also gated. Low dose chest CT performed to allow for attenuation correction. Findings: Attenuation corrected images shows diminished activity within a portion of the anterior wall near the apex on the stress study. This appears normal on the rest exam and is suspicious for small area of reversible ischemia. Activity is otherwise homogeneous between rest and stress study. Ejection fraction is 65%. Wall thickening is normal. Impression: 1. Findings suspicious for small area of reversible ischemia within the anterior wall near the apex. 2. Other portions of the Cardiolite cardiac exam are unremarkable. Diagnostic code #3
--- NOTE | 2017-05-10 06:36 | STRESS ---
REQUESTING PHYSICIAN: Radha Piña MD DATE: 03/21/2017 PROCEDURE: Lexiscan Stress Test. ORDERING PROVIDER: Radha Piña MD REASON FOR STUDY: Atypical chest pain. PROTOCOL: Lexiscan. INTERPRETATION: Baseline EKG sinus rhythm, ventricular rate 60 beats per minute, borderline first degree AV heart block. During Lexiscan testing max heart rate achieved 102 beats per minute. Peak blood pressure 140/85, total test time 6 minutes, METS 1.0. During testing and recovery, there were no EKG changes consistent with ischemia. No arrhythmias noted. The patient did not have chest pain or other similar anginal equivalence. IMPRESSION: 1. Electrographically negative Lexiscan test for ischemia. 2. Normal blood pressure response to stress. 3. Nuclear imaging results pending and will be reported separately per radiologist. MMODAL /[id number]
== END 2017-03-24 14:55 | disposition home or self-care (01) | DRG 281 ==
LOC: JD.ED 14:50 → JD.MS 19:47
PROVIDERS: ADMIT Internal Medicine Cardiovascular Disease; ATTEND Internal Medicine Cardiovascular Disease
DX: I21.4 Non-ST elevation (NSTEMI) myocardial infarction (principal); Z68.41 Body mass index [BMI] 40.0-44.9, adult; I47.2 Ventricular tachycardia; R55 Syncope and collapse; M54.12 Radiculopathy, cervical region; E66.01 Morbid (severe) obesity due to excess calories; R00.1 Bradycardia, unspecified; R11.2 Nausea with vomiting, unspecified; M19.90 Unspecified osteoarthritis, unspecified site; G43.909 Migraine, unspecified, not intractable, without status migrainosus; I95.9 Hypotension, unspecified; F51.04 Psychophysiologic insomnia
CPT/HCPCS: 36415; 70450; 70450-26; 70548; 70548-26; 70553; 70553-26; 71010; 71010-26; 71275; 71275-26; 78452; 78452-26; 80048; 80053; 81001; 81025; 83735; 84439; 84443; 84484; 85025; 85379; 85652; 86140; 86738; 87899; 93005; 93017; 93306; 96361; 96374; 96375; 97110-GP; 97116-GP; 97162-GP; 99284; 99285-25; A9270-GY; A9500; A9577; G0480; J1200; J1650; J2785; J2930; J3475; J7030; J7040; J7050; J7120; Q9967

== ENCOUNTER 2017-03-29 17:07 | Emergency (ER) | payer OTHER ==
[2017-03-29] MEDS ORDERED: Sodium Chloride 0.9% 10 ML Syringe FLUSH PRN (17:12)
[2017-03-29] MEDS ORDERED: Sodium Chloride 0.9% 1,000 ML IV ONE (17:13)
--- NOTE | 2017-03-29 19:19 | EDM.PDOC ---
ED HPI GENERAL MEDICAL PROBLEM - General Chief Complaint: Neurological Problem Stated Complaint: LOW BP Time Seen by Provider: 03/29/17 17:07 Source of Information: Reports: Patient History Limitations: Reports: No Limitations - History of Present Illness INITIAL COMMENTS - FREE TEXT/NARRATIVE: 47-year-old female presents via private vehicle for a near syncopal episode. Reportedly episode occurred prior to arrival in the ER. She was reportedly eating when she began not feeling good. Her daughter reports that she had a flushed face. She did not completely pass out but was feeling like she was going to. Upon arrival to the ER she is very lethargic she is orientated to person but is difficult to obtain history from. I spoke with the patient's , Esteban, he reports that she had an episode like this last week. She was admitted to the Hospital and had extensive workup performed. The exact etiology for her symptoms was not found at that visit. 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 It is believed that this is the cause of her near syncopal episodes. She has hydrocodone at home but does not like to take it. He does not believe that she has been abusing hydrocodone. Left Upper Neck Pain Score (Numeric/FACES): 6 - Related Data Allergies Allergy/AdvReac Type Severity Reaction Status Date / Time Seasonal allergies Allergy Other Uncoded 12/06/14 14:43 Home Meds: Home Meds Pantogar 1 mg PO DAILY 07/26/15 [History] Zinc 50 mg PO DAILY 07/26/15 [History] traMADol HCl [Tramadol HCl] 50 mg PO Q6H PRN #15 tablet 07/26/15 [Rx] Biotin 10,000 mcg PO DAILY 03/21/17 [History] Fexofenadine [Lianna] 180 mg PO DAILY 03/21/17 [History] Hydrocodone/Acetaminophen [Hydrocodon-Acetaminophen 5-325] 1 tab PO ASDIRECTED PRN 03/21/17 [History] L.acidoph,Paracasei, B.lactis [Probiotic] 1 each PO DAILY 03/21/17 [History] Multivitamin with Minerals [Hair, Skin and Nails] 1 tab PO DAILY 03/21/17 [ History] Naproxen Sodium [Aleve] 440 mg PO Q4H PRN 03/21/17 [History] SUMAtriptan [Imitrex] 1 injection SUBCUT ASDIRECTED PRN 03/21/17 [History] Magnesium Oxide 400 mg PO BID #60 tablet 03/24/17 [Rx] Topiramate [Topamax] 25 mg PO QPM #120 tablet 03/24/17 [Rx] Past Medical History HEENT History: Reports: Impaired Vision Other HEENT History: Wears glasses occasionally - not here. 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 Neurological History: Reports: Migraines Other Neuro History: migraines since or . Mild concussion 2013. Psychiatric History: Reports: Depression Other Psychiatric History: Not medicated for it - refuses. Endocrine/Metabolic History: Reports: Obesity/BMI 30+ Other Endocrine/Metabolic History: Newly found "abnormality" on thyroid - per MRI 03/21. - Past Surgical History HEENT Surgical History: Reports: Tonsillectomy GI Surgical History: Reports: Cholecystectomy Social & Family History - Family History Family Medical History: Noncontributory Cardiac: Reports: Hypertension Endocrine/Metabolic: Reports: Diabetes, type II - Tobacco Use Smoking Status *Q: Never Smoker Years of Tobacco use: 20 Packs/Tins Daily: 0.5 Used Tobacco, but Quit: Yes Month Tobacco Last Used: 11 years ago Second Hand Smoke Exposure: No - Caffeine Use Caffeine Use: Reports: Coffee Other Caffeine Use: cup/day - Alcohol Use Days Per Week of Alcohol Use: 0 - Recreational Drug Use Recreational Drug Use: No ED ROS GENERAL - Review of Systems Review Of Systems: Unable To Obtain (patient was orientated to person, place and time upon arrival but was very lethargic and could not answer additional questions) ED EXAM, NEURO - Physical Exam Exam: See Below Exam Limited By: No Limitations General Appearance: WD/WN, Lethargic, Mild Distress, Obese Eye Exam: Bilateral Eye: PERRL Ears: Normal External Exam Nose: Normal Inspection Throat/Mouth: Normal Inspection, Normal Lips, Normal Voice, No Airway Compromise Neck: Normal Inspection Respiratory/Chest: No Respiratory Distress, Lungs Clear, Normal Breath Sounds Cardiovascular: Normal Peripheral Pulses, Regular Rate, Rhythm GI/Abdominal: Soft, Non-Tender Neurological: Difficulty Walking Psychiatric: Normal Affect, Normal Mood Skin Exam: Warm, Dry, Normal Color EKG INTERPRETATION EKG Date: 03/29/17 Time: 17:15 Rhythm: NSR Rate (Beats/Min): 72 [place]: Normal P-Wave: Present QRS: Normal ST-T: Normal QT: Normal EKG Interpretation Comments: NSR at 72 bpm Decreased voltage in the precordial leads. Otherwise normal ECG. Reviewed by myself and Dr. Phillips. Course - Vital Signs Last Recorded V/S: Last Vital Signs Temp 36.2 C 03/29/17 17:13 Pulse 76 03/29/17 19:52 Resp 18 03/29/17 19:52 BP 132/86 03/29/17 19:52 Pulse Ox 98 03/29/17 19:52 Orthostatic Blood Pressure [ 132/92 Standing] Orthostatic Blood Pressure [ 137/87 Sitting] Orthostatic Blood Pressure [ 125/75 Supine] - Orders/Labs/Meds Labs: Laboratory Tests 03/29/17 03/29/17 03/29/17 Range/Units 17:20 17:20 17:20 WBC 7.95 (3.98-10.04) K/mm3 RBC 4.74 (3.98-5.22) M/mm3 Hgb 13.6 (11.2-15.7) gm/L Hct 41.0 (34.1-44.9) % MCV 86.5 (79.4-94.8) fl MCH 28.7 (25.6-32.2) pg MCHC 33.2 (32.2-35.5) g/dl RDW Std Deviation 42.0 (36.4-46.3) fL Plt Count 234 (182-369) K/mm3 MPV 11.3 (9.4-12.3) fl Neutrophils % (Manual) 65 H (40-60) % Band Neutrophils % 1 (0-10) % Lymphocytes % (Manual) 30 (20-40) % Atypical Lymphs % 0 % Monocytes % (Manual) 3 (2-10) % Eosinophils % (Manual) 1 (0.7-5.8) % Basophils % (Manual) 0 L (0.1-1.2) Platelet Estimate Adequate RBC Morph Comment Normal Sodium 141 (136-145) mEq/L Potassium 3.5 (3.5-5.1) mEq/L Chloride 106 (98-107) mEq/L Carbon Dioxide 22 (21-32) mEq/L Anion Gap 16.5 H (5-15) BUN 16 (7-18) mg/dL Creatinine 1.1 H (0.55-1.02) mg/dL Est Cr Clr Drug Dosing 60.16 mL/min Estimated GFR (MDRD) 53 (>60) mL/min BUN/Creatinine Ratio 14.5 (14-18) Glucose 120 H (74-106) mg/dL POC Glucose (70-105) mg/dL Calcium 9.0 (8.5-10.1) mg/dL Magnesium 2.1 (1.8-2.4) mg/dl Total Bilirubin 0.2 (0.2-1.0) mg/dL AST 29 (15-37) U/L ALT 62 H (14-59) U/L Alkaline Phosphatase 98 (46-116) U/L Troponin I < 0.017 (0.00-0.056) ng/mL Total Protein 7.4 (6.4-8.2) g/dl Albumin 4.0 (3.4-5.0) g/dl Globulin 3.4 gm/dL Albumin/Globulin Ratio 1.2 (1-2) TSH 3rd Generation 1.593 (0.358-3.74) uIU/mL Urine Color (Yellow) Urine Appearance (Clear) Urine pH (5.0-8.0) Ur Specific [place] (1.005-1.030) Urine Protein (Negative) Urine Glucose (UA) (Negative) Urine Ketones (Negative) Urine Occult Blood (Negative) Urine Nitrite (Negative) Urine Bilirubin (Negative) Urine Urobilinogen (0.2-1.0) Ur Leukocyte Esterase (Negative) Urine RBC (0-5) /hpf Urine WBC (0-5) /hpf Ur Epithelial Cells (0-5) /hpf Amorphous Sediment (NOT SEEN) /hpf Urine Bacteria (FEW) /hpf Urine Mucus (FEW) /hpf Urine Opiates Screen (NEGATIVE) Ur Buprenorphine Scrn (NEGATIVE) Ur Oxycodone Screen (NEGATIVE) Urine Methadone Screen (NEGATIVE) Ur Propoxyphene Screen (NEGATIVE) Ur Barbiturates Screen (NEGATIVE) Ur Tricyclics Screen (NEGATIVE) Ur Phencyclidine Scrn (NEGATIVE) Ur Amphetamine Screen (NEGATIVE) U Methamphetamines Scrn (NEGATIVE) U Benzodiazepines Scrn (NEGATIVE) U Cocaine Metab Screen (NEGATIVE) U Marijuana (THC) Screen (NEGATIVE) Ethyl Alcohol 0.00 (0.00) gm% 03/29/17 03/29/17 03/29/17 Range/Units 17:26 17:55 18:00 WBC (3.98-10.04) K/mm3 RBC (3.98-5.22) M/mm3 Hgb (11.2-15.7) gm/L Hct (34.1-44.9) % MCV (79.4-94.8) fl MCH (25.6-32.2) pg MCHC (32.2-35.5) g/dl RDW Std Deviation (36.4-46.3) fL Plt Count (182-369) K/mm3 MPV (9.4-12.3) fl Neutrophils % (Manual) (40-60) % Band Neutrophils % (0-10) % Lymphocytes % (Manual) (20-40) % Atypical Lymphs % % Monocytes % (Manual) (2-10) % Eosinophils % (Manual) (0.7-5.8) % Basophils % (Manual) (0.1-1.2) Platelet Estimate RBC Morph Comment Sodium (136-145) mEq/L Potassium (3.5-5.1) mEq/L Chloride (98-107) mEq/L Carbon Dioxide (21-32) mEq/L Anion Gap (5-15) BUN (7-18) mg/dL Creatinine (0.55-1.02) mg/dL Est Cr Clr Drug Dosing mL/min Estimated GFR (MDRD) (>60) mL/min BUN/Creatinine Ratio (14-18) Glucose (74-106) mg/dL POC Glucose 108 H (70-105) mg/dL Calcium (8.5-10.1) mg/dL Magnesium (1.8-2.4) mg/dl Total Bilirubin (0.2-1.0) mg/dL AST (15-37) U/L ALT (14-59) U/L Alkaline Phosphatase (46-116) U/L Troponin I (0.00-0.056) ng/mL Total Protein (6.4-8.2) g/dl Albumin (3.4-5.0) g/dl Globulin gm/dL Albumin/Globulin Ratio (1-2) TSH 3rd Generation (0.358-3.74) uIU/mL Urine Color Yellow (Yellow) Urine Appearance Clear (Clear) Urine pH 7.5 (5.0-8.0) Ur Specific [place] 1.020 (1.005-1.030) Urine Protein Trace H (Negative) Urine Glucose (UA) Negative (Negative) Urine Ketones Negative (Negative) Urine Occult Blood Negative (Negative) Urine Nitrite Negative (Negative) Urine Bilirubin Negative (Negative) Urine Urobilinogen 0.2 (0.2-1.0) Ur Leukocyte Esterase Negative (Negative) Urine RBC 0-5 (0-5) /hpf Urine WBC 0-5 (0-5) /hpf Ur Epithelial Cells 0-5 (0-5) /hpf Amorphous Sediment Few H (NOT SEEN) /hpf Urine Bacteria Few (FEW) /hpf Urine Mucus Not seen (FEW) /hpf Urine Opiates Screen Negative (NEGATIVE) Ur Buprenorphine Scrn Negative (NEGATIVE) Ur Oxycodone Screen Negative (NEGATIVE) Urine Methadone Screen Negative (NEGATIVE) Ur Propoxyphene Screen Negative (NEGATIVE) Ur Barbiturates Screen Negative (NEGATIVE) Ur Tricyclics Screen Negative (NEGATIVE) Ur Phencyclidine Scrn Negative (NEGATIVE) Ur Amphetamine Screen Negative (NEGATIVE) U Methamphetamines Scrn Negative (NEGATIVE) U Benzodiazepines Scrn Negative (NEGATIVE) U Cocaine Metab Screen Negative (NEGATIVE) U Marijuana (THC) Screen Negative (NEGATIVE) Ethyl Alcohol (0.00) gm% Meds: Medications Discontinued Medications Generic Name Dose Route Start Last Admin Trade Name Freq PRN Reason Stop Dose Admin Sodium Chloride 1,000 mls @ 999 mls/hr 03/29/17 17:13 03/29/17 17:29 Normal Saline IV 03/29/17 18:13 999 mls/hr ONETIME ONE Administration Sodium Chloride 10 ml 03/29/17 17:12 03/29/17 17:30 Saline Flush FLUSH 10 ml ASDIRECTED PRN Administration Keep Vein Open - Radiology Interpretation Free Text/Narrative:: chest xray shows no acute intrathoracic process. - Re-Assessments/Exams Free Text/Narrative Re-Assessment/Exam: 03/29/17 19:18 Labs returned wbc is 7.95, hgb is 13.6 and plts are 234 trop is <0.017 mag is 2.1 TSH is 1.593 sodium is 141, potassium is 3.5, chloride is 106, anion gap is 16.5, glucose is 120. creatinine is 1.1 alcohol is 0 drug screen is negative I reviewed the records from her recent hospitalization. I reviewed the labs, ekg and chest xray with the patient. Patient is much more alert at this point. She denies any current pain. Patient has an appointment with neurology coming up. We will discharge her home at this point. Discharge instructions as documented. Departure - Departure Time of Disposition: 19:18 Disposition: Home, Self-Care 01 Condition: Fair Clinical Impression: Radiculopathy of cervical region, Altered mental status - Discharge Information Instructions: Confusion, Cervical Radiculopathy, [id number] Referrals: Nyasia Potts PA-C [Primary Care Provider] - Forms: ED Department Discharge Additional Instructions: Continue with your current plan of care. You have an appointment with your primary care provider tomorrow, 03/30/17 at 11 AM. please follow-up with Nyasia Colmenares as planned. Rest. Make sure drinking plenty of fluids. Continue with your current medications as needed for pain. Please return to the ER if your symptoms change or worsen.
[2017-03-29 19:54] VITALS: BP 132/86
--- NOTE | 2017-03-30 08:02 | CR ---
Chest: Portable view of the chest was obtained. Comparison: Previous chest x-ray of 03/21/[address] of 03/21/17. Heart size and mediastinum are within normal limits for portable technique. Lungs are clear. Bony structures are grossly intact. Impression: 1. Nothing acute is identified on portable chest x-ray. Diagnostic code #1
== END 2017-03-29 19:27 | disposition home or self-care (01) ==
LOC: JD.ED 17:07
DX: M54.12 Radiculopathy, cervical region (principal); R41.82 Altered mental status, unspecified; M19.90 Unspecified osteoarthritis, unspecified site; G43.909 Migraine, unspecified, not intractable, without status migrainosus; E66.9 Obesity, unspecified; Z98.890 Other specified postprocedural states; Z90.49 Acquired absence of other specified parts of digestive tract; Z79.899 Other long term (current) drug therapy; Z68.41 Body mass index [BMI] 40.0-44.9, adult
CPT/HCPCS: 36415; 71010; 80053; 80306; 81001; 82962; 83735; 84443; 84484; 85025; 93005; 96360; 99285; G0480; J7040; J7050; 99283

== ENCOUNTER 2017-06-28 07:37 | Day surgery (SDC) | payer OTHER ==
[~2017-06-28 07:37] MED LIST: Lactated Ringers 1,000 ML IV SCH; Lidocaine 1%/Sod Bicarbonate in NS 8.4% 1 ML Syringe PRN; Sodium Chloride 0.9% 10 ML Syringe FLUSH PRN
[2017-06-28] MEDS ORDERED: Sodium Chloride 0.9% 50 ML SDV ONE (08:26)
[2017-06-28] MEDS ORDERED: Lidocaine 1% with EPINEPHrine 1:100,000 20 ML MDV ONE (08:26)
--- NOTE | 2017-06-28 08:45 | PCM.PREANE ---
Preanesthetic Assessment - Anesthesia/Transfusion/Family Hx Anesthesia History: Prior Anesthesia Without Reaction Family History of Anesthesia Reaction: No Transfusion History: No Prior Transfusion(s) - Review of Systems General: No Symptoms Pulmonary: No Symptoms Cardiovascular: No Symptoms, Dyspnea on Exertion (saw a dr and no one knows why) Gastrointestinal: No Symptoms Neurological: No Symptoms Other: Reports: Thyroid Problems (nodes), Depression - Physical Assessment NPO Status Date: 06/27/17 NPO Status Time: 18:00 O2 Sat by Pulse Oximetry: 97 Respiratory Rate: 16 Vital Signs: Last Vital Signs Temp 98.2 F 06/28/17 07:45 Pulse 67 06/28/17 07:45 Resp 16 06/28/17 07:45 BP 128/85 06/28/17 07:45 Pulse Ox 97 06/28/17 07:45 Height: 5 ft 7 in Weight: 116.573 kg ASA Class: 2 Mental Status: Alert & Oriented x3 Airway Class: Mallampati = 1 Dentition: Reports: Normal Dentition Thyro-Mental Finger Breadths: 3 Mouth Opening Finger Breadths: 3 ROM/Head Extension: Full Lungs: Clear to Auscultation, Normal Respiratory Effort Cardiovascular: Regular Rate, Regular Rhythm - Allergies Allergies/Adverse Reactions: Allergies Allergy/AdvReac Type Severity Reaction Status Date / Time animal dander Allergy Cannot Verified 06/27/17 13:47 Remember Seasonal allergies Allergy Other Uncoded 06/27/17 13:47 - Blood Blood Available: No - Acknowledgements Anesthesia Type Planned: General Anesthesia Pt an Appropriate Candidate for the Planned Anesthesia: Yes Alternatives and Risks of Anesthesia Discussed w Pt/Guardian: Yes Pt/Guardian Understands and Agrees with Anesthesia Plan: Yes PreAnesthesia Questionnaire HEENT History: Reports: Impaired Vision Other HEENT History: Wears glasses occasionally - not here. 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 Mild concussion 2013. syncope Psychiatric History: Reports: Depression Other Psychiatric History: Not medicated for it - refuses. Endocrine/Metabolic History: Reports: Diabetes, Gestational, Obesity/BMI 30+ Other Endocrine/Metabolic History: Newly found "abnormality" on thyroid - per MRI 03/21. Hematologic History: Reports: None Immunologic History: Reports: None Oncologic (Cancer) History: Reports: None Dermatologic History: Reports: None - Past Surgical History Head Surgeries/Procedures: Reports: None HEENT Surgical History: Reports: Tonsillectomy GI Surgical History: Reports: Cholecystectomy Female Surgical History: Reports: None Male Surgical History: Reports: None Oncologic Surgical History: Reports: None Dermatological Surgical History: Reports: None - SUBSTANCE USE Smoking Status *Q: Former Smoker (quit 11 years ago) Tobacco Use Within Last Twelve Months: No Second Hand Smoke Exposure: No Days Per Week of Alcohol Use: 0 (twice a year) Recreational Drug Use History: No - HOME MEDS Home Medications: Home Meds Fexofenadine [Lianna] 180 mg PO DAILY 03/21/17 [History] L.acidoph,Paracasei, B.lactis [Probiotic] 1 cap PO DAILY 03/21/17 [History] Albuterol Sulfate [Proair Hfa] 2 puff INH Q4H PRN 06/27/17 [History] Magnesium Oxide 400 mg PO DAILY 06/27/17 [History] Metaxalone [Metaxalone] 400 mg PO TID 06/27/17 [History] Rizatriptan Benzoate [Rizatriptan] 10 mg PO ASDIRECTED PRN 06/27/17 [History] Topiramate [Topamax] 75 mg PO QPM 06/27/17 [History] Topiramate [Topiramate] 50 mg PO QAM 06/27/17 [History] - CURRENT (IN HOUSE) MEDS Current Meds: Current Medications Lactated Ringer's (Ringers, Lactated) 1,000 mls @ 125 mls/hr IV ASDIRECTED GIL Stop: 06/28/17 23:00 Last Admin: 06/28/17 08:00 Dose: 125 mls/hr Lidocaine/Sodium Bicarbonate (Buffered Lidocaine 1% In Ns 8.4%) 0.25 ml .XX ONETIME PRN PRN Reason: Prior to IV Start Stop: 06/28/17 18:00 Sodium Chloride (Saline Flush) 10 ml FLUSH ASDIRECTED PRN PRN Reason: Keep Vein Open Stop: 06/28/17 18:00
[2017-06-28] MEDS ORDERED: Succinylcholine 200 MG/10 ML MDV ONE (09:12)
[2017-06-28] MEDS ORDERED: Midazolam 1 MG/ML 2 ML SDV ONE (09:13)
[2017-06-28] MEDS ORDERED: Propofol 200 MG/20 ML SDV ONE (09:13)
[2017-06-28] MEDS ORDERED: fentaNYL 250 MCG/5 ML SDV ONE (09:13)
[2017-06-28] MEDS ORDERED: fentaNYL 100 MCG/2 ML SDV IVPUSH PRN (09:52)
[2017-06-28] MEDS ORDERED: HYDROmorphone 0.5 MG/0.5 ML Syringe IVPUSH PRN (09:52)
[2017-06-28] MEDS ORDERED: ceFAZolin 1 GM Vial ONE (09:57)
[2017-06-28] MEDS ORDERED: Dexamethasone 4 MG/ML SDV ONE (09:57)
[2017-06-28] MEDS ORDERED: Rocuronium 50 MG/5 ML Vial ONE (09:57)
[2017-06-28] MEDS ORDERED: Lidocaine 1% 4 ML ONE (09:57)
[2017-06-28] MEDS ORDERED: Ondansetron 4 MG/2 ML SDV ONE (09:57)
[2017-06-28] MEDS ORDERED: Neostigmine Methylsulfate 10 MG/10 ML MDV ONE (10:00)
[2017-06-28] MEDS ORDERED: Ondansetron 4 MG/2 ML SDV IVPUSH PRN (10:25)
[2017-06-28] MEDS ORDERED: HYDROmorphone 1 MG/ML Syringe ONE (10:25)
[2017-06-28] MEDS ORDERED: Acetaminophen/oxyCODONE 325-5 MG Tab PO PRN (10:25)
[2017-06-28] MEDS ORDERED: Ketorolac 30 MG/ML SDV ONE (10:27)
--- NOTE | 2017-06-28 10:32 | PCM.OPNOTE ---
- General Post-Op/Procedure Note Date of Surgery/Procedure: 06/28/17 Operative Procedure(s): Total vaginal hysterectomy with bilateral salpingo- oophorectomy Findings: Uterus is upper limits normal size, bilateral ovaries and fallopian tubes were functional and normal in appearance. Pre Op Diagnosis: 1. Abnormal uterine bleeding. 2. Menorrhagia. 3. Hypermenorrhea Post-Op Diagnosis: Same Anesthesia Technique: General ET Tube Other Anesthesia Type: Lidocaine quarter percent with [id number] mL total Primary Surgeon: Elías Au Secondary Surgeon: Abdulkadir Miller Anesthesia Provider: Mignon Hebert Pathology: Uterus, bilateral fallopian tubes and ovaries in one specimen container Fluid Replacement, Intraop: 1,200 EBL in mLs: 125 Complications: None Condition: Good Free Text/Narrative:: Surgery duration: 44 minutes Procedure: The patient was placed in supine position on the operating table. General endotracheal anesthesia was accomplished. After positioning, and adequate prep and drape, the procedure was then performed. Sterile speculum was placed in the vagina and cervix was visualized. Cervix was injected with lidocaine quarter percent with [id number] mL used. A full circumference incision was made in the cervical epithelium. The bladder was pushed well back off cervix. Posterior cul-de-sac was then entered sharply without problems. Left uterosacral was crossclamped with a LigaSure vessel closure system. The left uterosacral and then the right uterosacral ligament pedicles were developed using the Enseal system. The anterior cul-de-sac was then entered without problems and the uterine vasculature, cardinal ligament and broad ligament then developed using Enseal vessel closure system. The uterus was inverted at this time and upper broad ligament fallopian tube pedicles were crossclamped with Naseem clamps. Specimen was totally removed. Both these pedicles were then secured with a Naseem stitch of #1 Vicryl. Left and right fallopian tube was normal in appearance.. Using Enseal vessel closure system each of the tubes was then removed and sent with the specimen. Both ovaries were removed per patient's desire. The Enseal vessel closure system was used to remove both ovaries. The patient was found to be hemostatically intact at this time. A pursestring suture was and placed in the peritoneal cavity externalizing pedicles in case of bleeding. Vaginal cuff was sutured for hemostatic reasons with a running locked suture of 0 Monocryl from the 2 o'clock position to the 10 o'clock position posteriorly. Vaginal cuff was then closed from right to left side with a running locked suture of 0 Monocryl. Patient was returned to supine position and awakened from general endotracheal anesthesia. She tolerated the procedure was then left the operating room in satisfactory condition.
--- NOTE | 2017-06-28 10:36 | PCM.POSTAN ---
POST ANESTHESIA ASSESSMENT - MENTAL STATUS Mental Status: Somnolent - VITAL SIGNS Pulse Rate: 56 SaO2: 96 Resp Rate: 16 Blood Pressure: 108/55 Temperature: 36.8 C - RESPIRATORY Respiratory Status: Respiratory Rate WNL, Airway Patent, O2 Saturation Stable, Supplemental Oxygen - CARDIOVASCULAR CV Status: Pulse Rate WNL, Blood Pressure Stable - GASTROINTESTINAL GI Status: No Symptoms - PAIN Pain Score: 0 - POST OP HYDRATION Hydration Status: Adequate & Stable
[2017-06-28] MEDS ORDERED: Haloperidol Lactate 5 MG/ML SDV IVPUSH ONE (11:30)
[2017-06-28] MEDS ORDERED: Lactated Ringers 1,000 ML ONE (12:30)
[2017-06-28 14:02] VITALS: BP 117/62
--- NOTE | 2017-06-29 12:19 | PCM48HPAN ---
Post Anesthesia Note - EVALUATION WITHIN 48HRS OF ANESTHETIC Vital Signs in Normal Range: Yes Patient Participated in Evaluation: Yes Respiratory Function Stable: Yes Airway Patent: Yes Cardiovascular Function Stable: Yes Hydration Status Stable: Yes Pain Control Satisfactory: Yes Nausea and Vomiting Control Satisfactory: Yes Mental Status Recovered: Yes
== END 2017-06-28 15:20 | disposition home or self-care (01) ==
LOC: JD.SDS 07:37
PROVIDERS: ATTEND Obstetrics & Gynecology
DX: D25.9 Leiomyoma of uterus, unspecified (principal); F32.9 Major depressive disorder, single episode, unspecified; J30.2 Other seasonal allergic rhinitis; J30.81 Allergic rhinitis due to animal (cat) (dog) hair and dander; E66.9 Obesity, unspecified; Z79.899 Other long term (current) drug therapy; Z98.890 Other specified postprocedural states; Z87.891 Personal history of nicotine dependence; Z68.41 Body mass index [BMI] 40.0-44.9, adult
CPT/HCPCS: 58262; A9270; J0330; J0690; J1100; J1170; J1885; J2250; J2405; J2710; J3010; J7120; 00944; J2704

== ENCOUNTER 2018-02-22 21:40 | Emergency (ER) | payer OTHER ==
[2018-02-22 21:45] VITALS: BP 101/83
[2018-02-22] MEDS ORDERED: Ondansetron 4 MG/2 ML SDV IVPUSH ONE (21:53)
[2018-02-22] MEDS ORDERED: Sodium Chloride 0.9% 10 ML Syringe FLUSH PRN (21:53)
[2018-02-22] MEDS: Sodium Chloride 0.9% 1,000 ML IV SCH (22:06)
[2018-02-22] MEDS ORDERED: LORazepam 2 MG/ML SDV IVPUSH ONE (22:57)
[2018-02-22] MEDS ORDERED: LORazepam 2 MG/ML SDV ONE (22:58)
[2018-02-22] MEDS ORDERED: Sodium Chloride 0.9% 1,000 ML IV SCH (23:45)
[2018-02-23] MEDS: Sodium Chloride 0.9% 1,000 ML IV SCH (00:37)
--- NOTE | 2018-02-23 00:43 | EDM.PDOC ---
ED HPI GENERAL MEDICAL PROBLEM - General Chief Complaint: Syncope Stated Complaint: [facility] Time Seen by Provider: 02/22/18 21:44 Source of Information: Reports: Patient, Family, RN Notes Reviewed (Spouse) - History of Present Illness INITIAL COMMENTS - FREE TEXT/NARRATIVE: 48-year-old female has been brought to ED by ambulance after experiencing syncope at home. She had been out mowing lawn, doing yard work previously. She began to feel weak, lightheaded and dizzy. After getting into the house she told her she needed to use the bathroom. She did make it to the bathroom okay but then while using the toilet her heard a loud noise, when he went to check on her he found her off of the toilet, having fallen leaning over the bathtubunresponsive. He states that she was out for about 30 seconds, she than did start making some moaning type sounds and was awake upon ambulance arrival. On arrival to ED she continues to feel weak, lightheaded, dizzy. No apparent injury to the head or face. No chest pain. She does feel mildly short of breath and was hyperventilating to a moderate degree at time of my initial exam. She was feeling mildly nauseated at the time of my exam, no vomiting prior to arrival. Epigastric Pain Score (Numeric/FACES): 6 - Related Data Allergies Allergy/AdvReac Type Severity Reaction Status Date / Time animal dander Allergy Cannot Verified 02/22/18 21:45 Remember Seasonal allergies Allergy Other Uncoded 06/27/17 13:47 Home Meds: Home Meds L.acidoph,Paracasei, B.lactis [Probiotic] 1 cap PO DAILY 03/21/17 [History] Magnesium Oxide 400 mg PO DAILY 06/27/17 [History] Topiramate 50 mg PO QAM 06/27/17 [History] Topiramate [Topamax] 75 mg PO QPM 06/27/17 [History] Past Medical History HEENT History: Reports: Impaired Vision Other HEENT History: Wears glasses occasionally Cardiovascular History: Reports: Other (See Below) Other Cardiovascular History: lower extremity swelling Respiratory History: Reports: Other (See Below) Other Respiratory History: acute bronchitis, bacterial pneumonia Gastrointestinal History: Reports: Helicobacter Pylori Other Gastrointestinal History: abdominal pain Genitourinary History: Reports: None [employer] History: Reports: Other OB/BYN History: 5x Musculoskeletal History: Reports: Other (See Below) Other Musculoskeletal History: bulging disc and protruding disc C3,C4,C6,C7, T1, T2 which Causes numbness in 3 fingers of right hand. Neurological History: Reports: Concussion, Migraines Other Neuro History: migraines since 6 or . Mild concussion 2013. Psychiatric History: Reports: Depression Other Psychiatric History: Not medicated for it - refuses. Endocrine/Metabolic History: Reports: Obesity/BMI 30+ Other Endocrine/Metabolic History: Newly found "abnormality" on thyroid - per MRI 03/21. Hematologic History: Reports: None Immunologic History: Reports: None Oncologic (Cancer) History: Reports: None Dermatologic History: Reports: None - Past Surgical History HEENT Surgical History: Reports: Tonsillectomy GI Surgical History: Reports: Cholecystectomy Female Surgical History: Reports: Hysterectomy Social & Family History - Family History Family Medical History: Noncontributory Cardiac: Reports: Hypertension Endocrine/Metabolic: Reports: Diabetes, type II - Tobacco Use Smoking Status *Q: Former Smoker Used Tobacco, but Quit: Yes Month/Year Tobacco Last Used: 12 years ago Second Hand Smoke Exposure: No - Caffeine Use Caffeine Use: Reports: Coffee Other Caffeine Use: cup/day - Recreational Drug Use Recreational Drug Use: No ED ROS GENERAL - Review of Systems Review Of Systems: See Below Constitutional: Reports: Diaphoresis (No gone). Denies: Fever, Chills HEENT: Denies: Throat Pain Respiratory: Reports: Shortness of Breath. Denies: Wheezing, Pleuritic Chest Pain, Cough Cardiovascular: Reports: Lightheadedness, Syncope. Denies: Chest Pain GI/Abdominal: Reports: Nausea. Denies: Abdominal Pain, Diarrhea, Vomiting Musculoskeletal: Reports: No Symptoms Skin: Denies: Rash Neurological: Reports: Dizziness, Numbness (Mild bilateral hands and arms) - Physical Exam Exam: See Below General Appearance: Alert, Anxious, Moderate Distress, Other (Mild Hyperventilating upon arrival to ED) Eye Exam: Bilateral Eye: PERRL Throat/Mouth: Normal Inspection, Normal Oropharynx Head Exam: Atraumatic. No: Facial Ecchymosis, Facial Swelling Neck: Supple, Full Range of Motion Respiratory/Chest: No Respiratory Distress, Lungs Clear, Normal Breath Sounds Cardiovascular: Regular Rate, Rhythm GI/Abdominal: Soft, Non-Tender Neuro Exam (Abbreviated): Alert, Oriented, No Motor/Sensory Deficits Extremities: Normal Inspection, Normal Range of Motion Skin Exam: Warm, Dry, Normal Color EKG INTERPRETATION EKG Date: 02/22/18 Rhythm: NSR Belden: Normal P-Wave: Present QRS: Normal ST-T: Normal Course - Vital Signs Last Recorded V/S: Last Vital Signs Temp 96.6 F 02/22/18 21:41 Pulse 69 02/22/18 21:41 Resp 25 H 02/22/18 21:41 BP 101/83 02/22/18 21:41 Pulse Ox 100 02/22/18 21:41 - Orders/Labs/Meds Orders: Active Orders 24 hr Category Date Time Status EKG 12 Lead [EKG Documentation Completion] [] STAT Care 02/22/18 21:53 Active Peripheral IV Care [RC] . DIRECTED Care 02/22/18 21:53 Active Chest PE [Ang Chest] [CT] Stat Exams 02/22/18 23:31 Taken Head wo Cont [CT] Stat Exams 02/22/18 22:54 Taken Sodium Chloride 0.9% [Normal Saline] 1,000 ml Med 02/22/18 22:00 Active IV ONETIME Sodium Chloride 0.9% [Normal Saline] 1,000 ml Med 02/22/18 23:45 Active IV ONETIME Sodium Chloride 0.9% [Saline Flush] Med 02/22/18 21:53 Active 10 ml FLUSH ASDIRECTED PRN Peripheral IV Insertion Adult [OM.PC] Stat Oth 02/22/18 21:53 Ordered Medication Orders Sodium Chloride (Normal Saline) 1,000 mls @ 999 mls/hr IV ONETIME GIL Last Admin: 02/23/18 00:37 Dose: 999 mls/hr Infusion: 02/22/18 23:07 Dose: 999 mls/hr Admin: 02/22/18 22:06 Dose: 999 mls/hr Sodium Chloride (Normal Saline) 1,000 mls @ 999 mls/hr IV ONETIME GIL Sodium Chloride (Saline Flush) 10 ml FLUSH ASDIRECTED PRN PRN Reason: Keep Vein Open Last Admin: 02/22/18 22:06 Dose: 10 ml Labs: Laboratory Tests 02/22/18 02/22/18 02/22/18 Range/Units 21:47 21:47 21:47 WBC 9.26 (3.98-10.04) K/mm3 RBC 4.71 (3.98-5.22) M/mm3 Hgb 13.2 (11.2-15.7) gm/L Hct 40.6 (34.1-44.9) % MCV 86.2 (79.4-94.8) fl MCH 28.0 (25.6-32.2) pg MCHC 32.5 (32.2-35.5) g/dl RDW Std Deviation 42.2 (36.4-46.3) fL Plt Count 245 (182-369) K/mm3 MPV 11.6 (9.4-12.3) fl Neut % (Auto) 79.8 H (34.0-71.1) % Lymph % (Auto) 17.1 L (19.3-51.7) % Evangeline % (Auto) 2.4 L (4.7-12.5) % Eos % (Auto) 0.4 L (0.7-5.8) Baso % (Auto) 0.1 (0.1-1.2) % Neut # (Auto) 7.39 H (1.56-6.13) K/mm3 Lymph # (Auto) 1.58 (1.18-3.74) K/mm3 Evangeline # (Auto) 0.22 L (0.24-0.36) K/mm3 Eos # (Auto) 0.04 (0.04-0.36) K/mm3 Baso # (Auto) 0.01 (0.01-0.08) K/mm3 D-Dimer, Quantitative 1.46 H (0.19-0.50) mg/L Sodium 140 (136-145) mEq/L Potassium 3.8 (3.5-5.1) mEq/L Chloride 105 (98-107) mEq/L Carbon Dioxide 21 (21-32) mEq/L Anion Gap 17.8 H (5-15) BUN 21 H (7-18) mg/dL Creatinine 1.5 H (0.55-1.02) mg/dL Est Cr Clr Drug Dosing 43.63 mL/min Estimated GFR (MDRD) 37 (>60) mL/min BUN/Creatinine Ratio 14.0 (14-18) Glucose 193 H (74-106) mg/dL Calcium 9.3 (8.5-10.1) mg/dL Total Bilirubin 0.3 (0.2-1.0) mg/dL AST 37 (15-37) U/L ALT 49 (14-59) U/L Alkaline Phosphatase 129 H (46-116) U/L Total Protein 7.3 (6.4-8.2) g/dl Albumin 4.0 (3.4-5.0) g/dl Globulin 3.3 gm/dL Albumin/Globulin Ratio 1.2 (1-2) Meds: Medications Generic Name Dose Route Start Last Admin Trade Name Freq PRN Reason Stop Dose Admin Sodium Chloride 1,000 mls @ 999 mls/hr 02/22/18 22:00 02/23/18 00:37 Normal Saline IV 999 mls/hr ONETIME GIL Administration Sodium Chloride 1,000 mls @ 999 mls/hr 02/22/18 23:45 Normal Saline IV ONETIME GIL Sodium Chloride 10 ml 02/22/18 21:53 02/22/18 22:06 Saline Flush FLUSH 10 ml ASDIRECTED PRN Administration Keep Vein Open Discontinued Medications Generic Name Dose Route Start Last Admin Trade Name Freq PRN Reason Stop Dose Admin Lorazepam 1 mg 02/22/18 22:57 02/22/18 23:04 Ativan IVPUSH 02/22/18 22:58 1 mg ONETIME ONE Administration Lorazepam Confirm 02/22/18 22:58 02/22/18 23:03 Ativan Administered 02/22/18 22:59 Not Given Dose 2 mg .ROUTE .STK-MED ONE Ondansetron HCl 4 mg 02/22/18 21:53 02/22/18 22:07 Zofran IVPUSH 02/22/18 21:54 4 mg ONETIME ONE Administration - Re-Assessments/Exams Free Text/Narrative Re-Assessment/Exam: 02/23/18 02:04 Labs did come back showing moderate dehydration. She was given 1 L of fluid initially and then we did follow up with second liter of fluid. She was given Zofran 4 mg IV for nausea. Short while later she did start hyperventilating severely, Ativan was then given 1 mg IV. She did vomit once a short time after that. Head CT was ordered with concern of possible head injury having fallen against the bathtub. Shortly after the Ativan she did drop her sats briefly low she did not become tachypnic. She was much more tachypnea prior to the Ativan. D -dimer was ordered. Unfortunately that did come back elevated in the 1.[address] pulmonary angiogram was done which was normal. After 2 L of fluid patient is feeling better. She's remained in sinus rhythm, no ectopy. I did inquire if she has had outpatient Holter or event recorder in the past and she has had that done previously. Also has had prior echocardiogram and "a lot of other testing" . Discharge instructions as documented. Departure - Departure Time of Disposition: 01:54 Disposition: Home, Self-Care 01 Condition: Fair Clinical Impression: Vasovagal syncope, Dehydration - Discharge Information Instructions: Vasovagal Syncope, Pediatric, Dehydration, Adult, [id number] Referrals: Alejandra Rogel PA [Primary Care Provider] - Forms: ED Department Discharge Additional Instructions: Rest, avoid excessive heat exposure over the next couple of days, continue to drink plenty of water to maintain hydration, continue current medications as previously prescribed, although up with Avril at medical clinic early next week, call [phone] this morning for appointment, return to ED as needed if symptoms worsening in any way. - My Orders Last 24 Hours: My Active Orders 02/22/18 21:53 EKG 12 Lead [EKG Documentation Completion] [RC] STAT Peripheral IV Care [RC] . DIRECTED Sodium Chloride 0.9% [Saline Flush] 10 ml FLUSH ASDIRECTED PRN Peripheral IV Insertion Adult [OM.PC] Stat 02/22/18 22:00 Sodium Chloride 0.9% [Normal Saline] 1,000 ml IV ONETIME 02/22/18 22:54 Head wo Cont [CT] Stat 02/22/18 23:31 Chest PE [Ang Chest] [CT] Stat 02/22/18 23:45 Sodium Chloride 0.9% [Normal Saline] 1,000 ml IV ONETIME - Assessment/Plan Last 24 Hours: My Active Orders 02/22/18 21:53 EKG 12 Lead [EKG Documentation Completion] [RC] STAT Peripheral IV Care [RC] . DIRECTED Sodium Chloride 0.9% [Saline Flush] 10 ml FLUSH ASDIRECTED PRN Peripheral IV Insertion Adult [OM.PC] Stat 02/22/18 22:00 Sodium Chloride 0.9% [Normal Saline] 1,000 ml IV ONETIME 02/22/18 22:54 Head wo Cont [CT] Stat 02/22/18 23:31 Chest PE [Ang Chest] [CT] Stat 02/22/18 23:45 Sodium Chloride 0.9% [Normal Saline] 1,000 ml IV ONETIME
--- NOTE | 2018-02-23 06:58 | CT ---
CT chest Technique: Multiple axial sections through the chest were obtained. Intravenous contrast was utilized. Study has been performed as a pulmonary angiogram protocol. Findings: No filling defects are seen within the pulmonary arteries to indicate pulmonary embolism.. Prior cholecystectomy is noted. Visualized upper abdominal structures appear within normal limits. No pericardial thickening is seen. Mediastinum and hilar regions show no adenopathy or mass. Lungs are clear. Slight degenerative endplate spurring is incidentally noted within the spine. Impression: 1. No findings of pulmonary embolism. 2. Evidence of prior cholecystectomy. Incidental degenerative endplate spurring noted within the spine. 3. Nothing acute is seen on CT study of the chest. Diagnostic code #2 I agree with preliminary report issued by [facility] ([facility] preliminary report dictated on 02/23/19, 1:41 AM Central Time)
--- NOTE | 2018-02-23 06:58 | CT ---
Head CT Technique: Multiple axial sections through the brain were obtained. Intravenous contrast was not utilized. Comparison: Previous head CT study of 03/21/17. Findings: Ventricles along with basal cisterns and sulci over the convexities are within normal limits for the patient's age. No abnormal parenchymal densities are seen. No evidence of intracranial hemorrhage. No midline shift or mass effect is seen. Bone window settings were reviewed which show no acute calvarial abnormality. Visualized sinuses are clear. Increased soft tissue density is seen within the subcutaneous fat within the left upper parietal scalp appears to represent incidental scarring as finding is stable from previous exam. Impression: 1. No acute intracranial abnormality is seen. Other incidental finding as noted above. Diagnostic code #2 I agree with preliminary report issued by [facility] ([facility] preliminary report dictated on 02/23/18, 12:28 AM Central Time)
== END 2018-02-23 02:05 | disposition home or self-care (01) ==
LOC: JD.ED 21:40
DX: R55 Syncope and collapse (principal); E86.0 Dehydration; E66.9 Obesity, unspecified; Z87.891 Personal history of nicotine dependence; Z91.048 Other nonmedicinal substance allergy status; Z79.899 Other long term (current) drug therapy
CPT/HCPCS: 36415; 70450; 71275; 80053; 85025; 85379; 93005; 96361; 96374; 96375; 99285; J2060; J2405; J7040; J7050; 93010; 99284

== ENCOUNTER 2018-02-23 12:08 | Emergency (ER) | payer OTHER ==
[2018-02-23] MEDS ORDERED: Ketorolac 30 MG/ML SDV IM ONE (12:40)
[2018-02-23] MEDS ORDERED: Alum Hydrox/Mag Hydrox/Simeth 30 ML, Lidocaine 2% 15 ML PO ONE ×2 (12:40)
--- NOTE | 2018-02-23 12:49 | EDM.PDOC ---
ED HPI GENERAL MEDICAL PROBLEM - General Chief Complaint: Respiratory Problem Stated Complaint: SOB/FACIAL AND BODY SWELLING Time Seen by Provider: 02/23/18 12:25 Source of Information: Reports: Patient History Limitations: Reports: No Limitations - History of Present Illness INITIAL COMMENTS - FREE TEXT/NARRATIVE: Patient is a 48-year-old female presents ED complaining of generalized weakness , chest pressure, and shortness of breath. States she was evaluated last evening and was told she was dehydrated. She received IV fluids after testing with improvement to her condition. Upon awaking this morning she states her face and right upper body are swollen. She continues to be more short of breath. Patient admits to being very anxious stressed out with her home responsibilities. Chest pressures is mild in nature with no no increase noted with activity or pushing on her chest. She's had no cough. No hemoptysis. No fever. No sinus congestion runny nose or postnasal drip. No pain radiating to her back. No abdominal pain or dysuria. Mildly nauseated this morning. There is no emesis. She states the swelling to her legs has been going on for the past 2 months. Nothing acute as of recent. She has a past medical history of migraines and is currently on Topamax. She does not smoke, use recreational drugs, or drink alcohol. headache Pain Score (Numeric/FACES): 6 - Related Data Allergies Allergy/AdvReac Type Severity Reaction Status Date / Time animal dander Allergy Cannot Verified 02/23/18 12:20 Remember Seasonal allergies Allergy Other Uncoded 02/23/18 12:20 Home Meds: Home Meds L.acidoph,Paracasei, B.lactis [Probiotic] 1 cap PO DAILY 03/21/17 [History] Magnesium Oxide 400 mg PO DAILY 06/27/17 [History] Topiramate 50 mg PO QAM 06/27/17 [History] Topiramate [Topamax] 75 mg PO QPM 06/27/17 [History] Cholecalciferol (Vitamin D3) [Vitamin D3] 2,000 unit PO DAILY 02/23/18 [History] Past Medical History HEENT History: Reports: Impaired Vision Other HEENT History: Wears glasses occasionally Cardiovascular History: Reports: Other (See Below) Other Cardiovascular History: lower extremity swelling Respiratory History: Reports: Other (See Below) Other Respiratory History: acute bronchitis, bacterial pneumonia Gastrointestinal History: Reports: Helicobacter Pylori Other Gastrointestinal History: abdominal pain Genitourinary History: Reports: None 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 Neurological History: Reports: Concussion, Migraines Other Neuro History: migraines since or 7. Mild concussion 2013. Psychiatric History: Reports: Depression Other Psychiatric History: Not medicated for it - refuses. Endocrine/Metabolic History: Reports: Obesity/BMI 30+ Other Endocrine/Metabolic History: Newly found "abnormality" on thyroid - per MRI 03/21. Hematologic History: Reports: None Immunologic History: Reports: None Oncologic (Cancer) History: Reports: None Dermatologic History: Reports: None - Past Surgical History Head Surgeries/Procedures: Reports: None HEENT Surgical History: Reports: Tonsillectomy GI Surgical History: Reports: Cholecystectomy Female Surgical History: Reports: Hysterectomy Social & Family History - Family History Family Medical History: Noncontributory Cardiac: Reports: Hypertension Endocrine/Metabolic: Reports: Diabetes, type II - Tobacco Use Smoking Status *Q: Never Smoker - Caffeine Use Caffeine Use: Reports: Coffee Other Caffeine Use: cup/day - Recreational Drug Use Recreational Drug Use: No ED ROS GENERAL - Review of Systems Review Of Systems: See Below Constitutional: Reports: Weakness (patient reports). Denies: Fever, Chills, Malaise, Decreased Appetite HEENT: Reports: No Symptoms Respiratory: Reports: Shortness of Breath, Pleuritic Chest Pain. Denies: Cough , Sputum, Hemoptysis Cardiovascular: Reports: Chest Pain, Dyspnea on Exertion. Denies: Lightheadedness, Palpitations, PND, Syncope GI/Abdominal: Reports: No Symptoms : Reports: No Symptoms Musculoskeletal: Reports: Other (generalized) Neurological: Reports: Weakness Psychiatric: Reports: Anxiety ED EXAM, GENERAL - Physical Exam Exam: See Below Exam Limited By: No Limitations General Appearance: Alert, WD/WN, Anxious Eye Exam: Bilateral Eye: Normal Inspection, Nystagmus (none noted), PERRL Ears: Hearing Grossly Normal Nose: Normal Inspection Throat/Mouth: Normal Inspection, Normal Oropharynx, Normal Voice, No Airway Compromise Head: Atraumatic, Normocephalic Neck: Normal Inspection, Supple Respiratory/Chest: No Respiratory Distress, Lungs Clear, Normal Breath Sounds, No Accessory Muscle Use, Chest Non-Tender Cardiovascular: Normal Peripheral Pulses, Regular Rate, Rhythm, No Murmur Peripheral Pulses: 4+: Radial (L), Radial (R) GI/Abdominal: Normal Bowel Sounds, Soft, Non-Tender, No Organomegaly, No Distention Extremities: Normal Inspection, Non-Tender, No Pedal Edema, Normal Capillary Refill Neurological: Alert, Oriented, CN II-XII Intact, No Motor/Sensory Deficits Psychiatric: Anxious, Depressed Mood Skin Exam: Warm, Dry, Intact, Normal Color Course - Vital Signs Last Recorded V/S: Last Vital Signs Temp 97.8 F 02/23/18 12:10 Pulse 69 02/23/18 15:54 Resp 16 02/23/18 15:54 BP 112/72 02/23/18 15:54 Pulse Ox 98 02/23/18 15:54 - Orders/Labs/Meds Orders: Active Orders 24 hr Category Date Time Status EKG Documentation Completion [RC] STAT Care 02/23/18 12:39 Active Labs: Laboratory Tests 02/23/18 02/23/18 02/23/18 Range/Units 13:07 13:20 13:20 WBC 9.53 (3.98-10.04) K/mm3 RBC 4.31 (3.98-5.22) M/mm3 Hgb 12.0 (11.2-15.7) gm/L Hct 37.6 (34.1-44.9) % MCV 87.2 (79.4-94.8) fl MCH 27.8 (25.6-32.2) pg MCHC 31.9 L (32.2-35.5) g/dl RDW Std Deviation 43.7 (36.4-46.3) fL Plt Count 201 (182-369) K/mm3 MPV 11.8 (9.4-12.3) fl Neutrophils % (Manual) 67 H (40-60) % Band Neutrophils % 1 (0-10) % Lymphocytes % (Manual) 28 (20-40) % Atypical Lymphs % 0 % Monocytes % (Manual) 3 (2-10) % Eosinophils % (Manual) 1 (0.7-5.8) % Basophils % (Manual) 0 L (0.1-1.2) Platelet Estimate Adequate RBC Morph Comment Normal Puncture Site Lt radial ABG pH 7.39 (7.35-7.45) ABG pCO2 31.9 L (35.0-45.0) mmHg ABG pO2 61.0 L (80.0-100.0) mmHg ABG HCO3 18.8 L (22.0-26.0) meq/L ABG O2 Saturation 91.5 L (96.0-97.0) % ABG Base Excess -4.9 L (-2-2.0) Son Test Positive A-a Gradient 33 mmHg O2 Delivery Device Room air FiO2 21.00 (21.00-100.00) % Sodium 142 (136-145) mEq/L Potassium 3.9 (3.5-5.1) mEq/L Chloride 110 H (98-107) mEq/L Carbon Dioxide 24 (21-32) mEq/L Anion Gap 11.9 (5-15) BUN 14 (7-18) mg/dL Creatinine 1.0 (0.55-1.02) mg/dL Est Cr Clr Drug Dosing 65.45 mL/min Estimated GFR (MDRD) 59 (>60) mL/min BUN/Creatinine Ratio 14.0 (14-18) Glucose 100 (74-106) mg/dL Calcium 8.5 (8.5-10.1) mg/dL Total Bilirubin 0.5 (0.2-1.0) mg/dL AST 36 (15-37) U/L ALT 49 (14-59) U/L Alkaline Phosphatase 116 (46-116) U/L Troponin I < 0.017 (0.00-0.056) ng/mL C-Reactive Protein 0.9 (<1.0) mg/dL NT-Pro-B Natriuret Pep (0-125) pg/mL Total Protein 6.5 (6.4-8.2) g/dl Albumin 3.4 (3.4-5.0) g/dl Globulin 3.1 gm/dL Albumin/Globulin Ratio 1.1 (1-2) TSH 3rd Generation (0.358-3.74) uIU/mL 02/23/18 02/23/18 Range/Units 13:20 13:20 WBC (3.98-10.04) K/mm3 RBC (3.98-5.22) M/mm3 Hgb (11.2-15.7) gm/L Hct (34.1-44.9) % MCV (79.4-94.8) fl MCH (25.6-32.2) pg MCHC (32.2-35.5) g/dl RDW Std Deviation (36.4-46.3) fL Plt Count (182-369) K/mm3 MPV (9.4-12.3) fl Neutrophils % (Manual) (40-60) % Band Neutrophils % (0-10) % Lymphocytes % (Manual) (20-40) % Atypical Lymphs % % Monocytes % (Manual) (2-10) % Eosinophils % (Manual) (0.7-5.8) % Basophils % (Manual) (0.1-1.2) Platelet Estimate RBC Morph Comment Puncture Site ABG pH (7.35-7.45) ABG pCO2 (35.0-45.0) mmHg ABG pO2 (80.0-100.0) mmHg ABG HCO3 (22.0-26.0) meq/L ABG O2 Saturation (96.0-97.0) % ABG Base Excess (-2-2.0) Son Test A-a Gradient mmHg O2 Delivery Device FiO2 (21.00-100.00) % Sodium (136-145) mEq/L Potassium (3.5-5.1) mEq/L Chloride (98-107) mEq/L Carbon Dioxide (21-32) mEq/L Anion Gap (5-15) BUN (7-18) mg/dL Creatinine (0.55-1.02) mg/dL Est Cr Clr Drug Dosing mL/min Estimated GFR (MDRD) (>60) mL/min BUN/Creatinine Ratio (14-18) Glucose (74-106) mg/dL Calcium (8.5-10.1) mg/dL Total Bilirubin (0.2-1.0) mg/dL AST (15-37) U/L ALT (14-59) U/L Alkaline Phosphatase (46-116) U/L Troponin I (0.00-0.056) ng/mL C-Reactive Protein (<1.0) mg/dL NT-Pro-B Natriuret Pep 368 H (0-125) pg/mL Total Protein (6.4-8.2) g/dl Albumin (3.4-5.0) g/dl Globulin gm/dL Albumin/Globulin Ratio (1-2) TSH 3rd Generation 1.402 (0.358-3.74) uIU/mL Meds: Medications Discontinued Medications Generic Name Dose Route Start Last Admin Trade Name Freq PRN Reason Stop Dose Admin Al Hydroxide/Mg Hydroxide 30 0 ml 02/23/18 12:40 02/23/18 12:59 ml/ Lidocaine HCl 15 ml PO 02/23/18 12:41 45 ml ONETIME ONE Administration Diphenhydramine HCl 50 mg 02/23/18 13:54 02/23/18 14:04 Benadryl IM 02/23/18 13:55 50 mg ONETIME ONE Administration Haloperidol Lactate 5 mg 02/23/18 13:54 02/23/18 14:02 Haldol IM 02/23/18 13:55 5 mg ONETIME ONE Administration Ketorolac Tromethamine 30 mg 02/23/18 12:40 02/23/18 13:02 Toradol IM 02/23/18 12:41 30 mg ONETIME ONE Administration - Re-Assessments/Exams Free Text/Narrative Re-Assessment/Exam: IV is not required at this point. Vital signs are stable. Will obtain basic labs including: CBC, chem 14, CRP, proBNP, troponin, tsh, chest x-ray, and EKG, I have ordered toradol 30mg IM and GI cocktail. Reviewed ED visit last night. Labs and studies obtained include: CBC, d-dimer, CMP, and CT angiogram of the chest. She was administered 2 L of IV fluids, Ativan 1 mg IVP with improvements to her symptoms. Patient reported having a Holter monitor the past. She's already had a echocardiogram and a lot patient was discharged home with instructions for vasovagal syncope and dehydration. EKst degree av block rate of 64. SC interval 210. QTc 426. No acute st changes. CXR: reviewed with no acute findings. Reviewed with Dr. Mullen. Final interpretation is pending. 02/23/18 13:54 Reassessment, vital signs are stable. Patient is alert eyes are open moving her upper extremities with no issues. There is no visual signs of weakness. She is much more relaxed. States she has a headache consistent with previous migraines generalized. The Toradol was administered with no relief. I discussed abortive therapy with her and that it would include Haldol 5 mg IM and Benadryl 50 mg IM. I discussed adverse side effects with taking Haldol. Patient has no further questions. Agrees with plan. 02/23/18 13:58 Labs reveal: CBC essentially normal. ABG: ph 7.39, pCO2 31.9, pO2 61, HCO3 18.8, O2 Sats 91.5, base excess -4.9. CMP, CRP, BNP, troponin, and TSH pending. Labs reviewed: CMP reviewed unremarkable. Troponin <0.017. Pro BNP 368. TSH WNL. CRP normal. 1454 Reassessment, patient resting comfortably in bed. VSS. States headache is improving. She is ready to be discharged home. The patient remained hemodynamically stable while under my care in the E.D. I discussed the concerning symptoms for which to return to the E.D. with the patient. The patient verbalized understanding. All questions were answered. Departure - Departure Time of Disposition: 14:55 Disposition: Home, Self-Care 01 Condition: Good Clinical Impression: Anxiety attack Headache Qualifiers: Headache type: unspecified Headache chronicity pattern: episodic headache Intractability: not intractable Qualified Code(s): R51 - Headache - Discharge Information Instructions: Migraine Headache, [id number] Referrals: Alejandra Rogel PA [Primary Care Provider] - Forms: ED Department Discharge Additional Instructions: Suggest going home and finding a dark room to sleep in with no distractions. No driving today since receiving a sedative medication. On examination there was minimal swelling to the face and extremities. He did receive 2 L of IV fluids yesterday. Labs reviewed with no concerns. Please follow up with your primary care provider in the next week for reevaluation. - My Orders Last 24 Hours: My Active Orders 02/23/18 12:39 EKG Documentation Completion [RC] STAT - Assessment/Plan Last 24 Hours: My Active Orders 02/23/18 12:39 EKG Documentation Completion [RC] STAT
[2018-02-23] MEDS ORDERED: diphenhydrAMINE 50 MG/ML SDV IM ONE (13:54)
[2018-02-23] MEDS ORDERED: Haloperidol Lactate 5 MG/ML SDV IM ONE (13:54)
--- NOTE | 2018-02-23 14:00 | CR ---
Chest: Portable view of the chest was obtained. Comparison: No prior chest x-ray. Heart size and mediastinum are normal. Lungs are clear. Bony structures are grossly intact. Impression: 1. Nothing acute is seen on portable chest x-ray. Diagnostic code #1
[2018-02-23 15:55] VITALS: BP 112/72
== END 2018-02-23 15:52 | disposition home or self-care (01) ==
LOC: JD.ED 12:08
DX: F41.9 Anxiety disorder, unspecified (principal); R51 Headache; E66.9 Obesity, unspecified; Z91.048 Other nonmedicinal substance allergy status; Z79.899 Other long term (current) drug therapy
CPT/HCPCS: 36415; 36600; 71045; 80053; 82803; 83880; 84443; 84484; 85007; 85027; 86140; 93005; 96372; 99285; A9270; J1200; J1630; J1885; 93010; 99283

== ENCOUNTER 2019-03-08 12:33 | Emergency (ER) | payer OTHER ==
[2019-03-08] MEDS ORDERED: Lactated Ringers 1,000 ML IV ONE (13:04)
--- NOTE | 2019-03-08 13:48 | CT ---
Head CT Technique: Multiple axial sections through the brain were obtained. Intravenous contrast was not utilized. Comparison: Prior head CT study of 02/22/18. Findings: Ventricles along with basal cisterns and sulci over the convexities are within normal limits for the patient's age. No abnormal parenchymal densities are seen. No evidence of intracranial hemorrhage. No midline shift or mass effect is seen. Bone window settings were reviewed which show no acute calvarial abnormality. Visualized paranasal sinuses are clear. Mastoid sinuses are also clear. Soft tissue swelling appears to be present within the posterior right scalp. Impression: 1. Soft tissue swelling within the posterior right scalp. 2. No acute intracranial abnormality is seen. Diagnostic code #2
--- NOTE | 2019-03-08 13:55 | CR ---
Chest: Portable view of the chest was obtained. Comparison: Prior chest x-ray of 03/29/17. Heart size and mediastinum are normal. Lungs are clear. Bony structures are grossly intact. Impression: 1. Nothing acute is seen on portable chest x-ray. Diagnostic code #1
[2019-03-08] MEDS ORDERED: Sodium Chloride 0.9% 10 ML Syringe FLUSH PRN (14:13)
[2019-03-08] MEDS ORDERED: Iohexol 350 MG/ML 75 ML Bottle IVPUSH ONE (14:13)
[2019-03-08] MEDS ORDERED: Sodium Chloride 0.9% 100 ML IV SCH (14:15)
--- NOTE | 2019-03-08 15:19 | CT ---
CT chest Technique: Multiple axial sections were obtained from above the lung apices inferiorly through the lung bases. Intravenous contrast was utilized. Study has been performed as a pulmonary angiogram protocol. Findings: Small portion of the visualized upper abdominal structures shows evidence of previous gastric surgery as well as cholecystectomy. Pulmonary arteries are fairly well-opacified. No filling defects are seen to indicate pulmonary embolism. Mediastinum and hilar region show no adenopathy or mass. No pericardial thickening is seen. No axillary adenopathy is identified. Lungs are clear. No acute parenchymal change is seen. No pleural effusions are seen. Bone window settings were reviewed showing no acute osseous abnormality. Impression: 1. No findings of pulmonary embolism. 2. Nothing acute is seen on CT study of the chest. Diagnostic code #2
--- NOTE | 2019-03-08 15:49 | EDM.PDOC ---
ED HPI GENERAL MEDICAL PROBLEM - General Chief Complaint: Syncope Stated Complaint: [facility] Time Seen by Provider: 03/08/19 12:34 Source of Information: Reports: Patient, Old Records History Limitations: Reports: No Limitations - History of Present Illness INITIAL COMMENTS - FREE TEXT/NARRATIVE: 49-year-old female presents via [facility] following a syncopal episode. Patient was at work. She reports she had 2 witnessed syncopal episodes. She states that she started looking flushed. She states that she did not feel well. She was made on the floor when she got up she had a syncopal episode and near head on the floor. States that she tried to get up again and had a second syncopal episode. She is reporting nausea and vomiting which has resolved after IV Zofran. She denies any headaches, chest pain, shortness breath or abdominal pain. Patient reports that she chronically has pain in left leg. Is present when she does not move around as much. Patient reports she's been in the ER and hospitalized on several occasions for syncopal episodes. No etiology for syncopal episodes has been found thus far. Review the patient's records show that she has had multiple tests done including a stress test which showed an area of reversible ischemia. She states she did follow up with cardiology but they did not feel there is anything more due. She has also had a Holter monitor which did not show any abnormalities. Primary care provider is Alejandra Rogel. Previous abdominal surgeries include gastric bypass. Posterior Head Pain Score (Numeric/FACES): 9 - Related Data Allergies Allergy/AdvReac Type Severity Reaction Status Date / Time animal dander Allergy Cannot Verified 03/08/19 13:03 Remember Seasonal allergies Allergy Other Uncoded 03/08/19 13:03 Home Meds: Home Meds L.acidoph,Paracasei, B.lactis [Probiotic] 1 cap PO DAILY 03/21/17 [History] Magnesium Oxide 400 mg PO DAILY 06/27/17 [History] Topiramate 50 mg PO QAM 06/27/17 [History] Topiramate [Topamax] 75 mg PO QPM 06/27/17 [History] Cholecalciferol (Vitamin D3) [Vitamin D3] 2,000 unit PO DAILY 02/23/18 [History] Biotin 1 cap PO DAILY 03/08/19 [History] Cetirizine HCl [Zyrtec] 10 mg PO DAILY 03/08/19 [History] Furosemide [Lasix] 20 mg PO DAILY 03/08/19 [History] Kerotin 1 tab PO DAILY 03/08/19 [History] Potassium 0 mg PO DAILY 03/08/19 [History] Rizatriptan Benzoate [Rizatriptan] 10 mg PO ASDIRECTED PRN 03/08/19 [History] Past Medical History HEENT History: Reports: Impaired Vision Other HEENT History: Wears glasses occasionally Cardiovascular History: Reports: Other (See Below) Other Cardiovascular History: lower extremity swelling Respiratory History: Reports: Other (See Below) Other Respiratory History: acute bronchitis, bacterial pneumonia Gastrointestinal History: Reports: Helicobacter Pylori Other Gastrointestinal History: abdominal pain Genitourinary History: Reports: None 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 Neurological History: Reports: Concussion, Migraines Other Neuro History: migraines since or . Mild concussion 2013. Psychiatric History: Reports: Depression Other Psychiatric History: Not medicated for it - refuses. Endocrine/Metabolic History: Reports: Obesity/BMI 30+ Other Endocrine/Metabolic History: Newly found "abnormality" on thyroid - per MRI 03/21. Hematologic History: Reports: None Immunologic History: Reports: None Oncologic (Cancer) History: Reports: None Dermatologic History: Reports: None - Infectious Disease History Infectious Disease History: Reports: Chicken Pox, Measles, Mumps - Past Surgical History HEENT Surgical History: Reports: Tonsillectomy GI Surgical History: Reports: Bariatric Procedure, Cholecystectomy Other GI Surgeries/Procedures: gastric sleeve, Jul 2018. Female Surgical History: Reports: Hysterectomy Social & Family History - Family History Family Medical History: Noncontributory Cardiac: Reports: Hypertension Endocrine/Metabolic: Reports: Diabetes, type II - Tobacco Use Smoking Status *Q: Never Smoker Second Hand Smoke Exposure: No - Caffeine Use Caffeine Use: Reports: Coffee Other Caffeine Use: cup/day - Recreational Drug Use Recreational Drug Use: No ED ROS GENERAL - Review of Systems Review Of Systems: See Below Constitutional: Denies: Fever, Chills Respiratory: Denies: Shortness of Breath Cardiovascular: Denies: Chest Pain GI/Abdominal: Reports: Nausea, Vomiting. Denies: Abdominal Pain Musculoskeletal: Reports: Leg Pain (left) Neurological: Reports: Syncope. Denies: Headache - Physical Exam Exam: See Below Exam Limited By: No Limitations General Appearance: Alert, WD/WN, No Apparent Distress Eye Exam: Bilateral Eye: Normal Inspection Ears: Normal External Exam Nose: Normal Inspection Throat/Mouth: Normal Inspection, Normal Lips, Normal Voice, No Airway Compromise Head Exam: Atraumatic, Normocephalic Neck: Normal Inspection, Supple, Non-Tender, Full Range of Motion Respiratory/Chest: No Respiratory Distress, Lungs Clear, Normal Breath Sounds Cardiovascular: Normal Peripheral Pulses, Regular Rate, Rhythm, No Murmur GI/Abdominal: Normal Bowel Sounds, Soft, Non-Tender Neuro Exam (Abbreviated): Alert, Oriented, Normal Cognition Extremities: Normal Inspection Psychiatric: Normal Affect, Normal Mood Skin Exam: Warm, Dry, Normal Color EKG INTERPRETATION EKG Date: 03/08/19 Time: 13:28 Rhythm: NSR Rate (Beats/Min): 64 [place]: Normal P-Wave: Present QRS: Normal ST-T: Depressed (V5 and V6) Comparison: No Change EKG Interpretation Comments: NSR at [address] depression in the lateral leads, minimal present on old ekg. Reviewed by myself and Dr. Mullen. Course - Vital Signs Last Recorded V/S: Last Vital Signs Temp 98.6 F 03/08/19 17:35 Pulse 74 03/08/19 17:35 Resp 20 03/08/19 17:35 BP 105/67 03/08/19 17:35 Pulse Ox 99 03/08/19 17:35 Orthostatic Blood Pressure [ 105/73 Standing] Orthostatic Blood Pressure [ 110/75 Sitting] Orthostatic Blood Pressure [ 108/66 Supine] - Orders/Labs/Meds Labs: Laboratory Tests 03/08/19 03/08/19 03/08/19 Range/Units 13:15 13:15 13:15 WBC 6.05 (3.98-10.04) K/mm3 RBC 4.65 (3.98-5.22) M/mm3 Hgb 13.0 (11.2-15.7) gm/L Hct 40.7 (34.1-44.9) % MCV 87.5 (79.4-94.8) fl MCH 28.0 (25.6-32.2) pg MCHC 31.9 L (32.2-35.5) g/dl RDW Std Deviation 41.2 (36.4-46.3) fL Plt Count 183 (182-369) K/mm3 MPV 11.8 (9.4-12.3) fl Neutrophils % (Manual) 85 H (40-60) % Band Neutrophils % 0 (0-10) % Lymphocytes % (Manual) 12 L (20-40) % Atypical Lymphs % 0 % Monocytes % (Manual) 3 (2-10) % Eosinophils % (Manual) 0 L (0.7-5.8) % Basophils % (Manual) 0 L (0.1-1.2) Platelet Estimate Adequate RBC Morph Comment Normal D-Dimer, Quantitative 1.80 H (0.19-0.50) mg/L Sodium 142 (136-145) mEq/L Potassium 3.9 (3.5-5.1) mEq/L Chloride 105 (98-107) mEq/L Carbon Dioxide 26 (21-32) mEq/L Anion Gap 14.9 (5-15) BUN 22 H (7-18) mg/dL Creatinine 1.1 H (0.55-1.02) mg/dL Est Cr Clr Drug Dosing 58.84 mL/min Estimated GFR (MDRD) 52 (>60) mL/min BUN/Creatinine Ratio 20.0 H (14-18) Glucose 151 H (74-106) mg/dL Calcium 9.2 (8.5-10.1) mg/dL Magnesium 1.8 (1.8-2.4) mg/dl Total Bilirubin 0.3 (0.2-1.0) mg/dL AST 32 (15-37) U/L ALT 60 H (14-59) U/L Alkaline Phosphatase 156 H (46-116) U/L Troponin I < 0.017 (0.00-0.056) ng/mL Total Protein 7.1 (6.4-8.2) g/dl Albumin 3.6 (3.4-5.0) g/dl Globulin 3.5 gm/dL Albumin/Globulin Ratio 1.0 (1-2) TSH 3rd Generation 2.087 (0.358-3.74) uIU/mL Urine Color (Yellow) Urine Appearance (Clear) Urine pH (5.0-8.0) Ur Specific [place] (1.005-1.030) Urine Protein (Negative) Urine Glucose (UA) (Negative) Urine Ketones (Negative) Urine Occult Blood (Negative) Urine Nitrite (Negative) Urine Bilirubin (Negative) Urine Urobilinogen (0.2-1.0) Ur Leukocyte Esterase (Negative) Urine RBC (0-5) /hpf Urine WBC (0-5) /hpf Ur Epithelial Cells (0-5) /hpf Urine Bacteria (FEW) /hpf Urine Mucus (FEW) /hpf Urine Opiates Screen (LBKIEE=018) Ur Buprenorphine Scrn (CUTOFF=10) Ur Oxycodone Screen (BAT3WB=808) Urine Methadone Screen (NFUADB=110) Ur Propoxyphene Screen (OOHPAM=472) Ur Barbiturates Screen (XHOAYG=880) Ur Tricyclics Screen (MRNSBW=033) Ur Phencyclidine Scrn (CUTOFF=25) Ur Amphetamine Screen (PMUXGM=572) U Methamphetamines Scrn (RXGHPO=593) U Benzodiazepines Scrn (YYVCEF=533) U Cocaine Metab Screen (TQJYXX=662) U Marijuana (THC) Screen (CUTOFF=50) Ethyl Alcohol 0.00 (0.00) gm% 03/08/19 03/08/19 03/08/19 Range/Units 14:46 14:46 16:15 WBC (3.98-10.04) K/mm3 RBC (3.98-5.22) M/mm3 Hgb (11.2-15.7) gm/L Hct (34.1-44.9) % MCV (79.4-94.8) fl MCH (25.6-32.2) pg MCHC (32.2-35.5) g/dl RDW Std Deviation (36.4-46.3) fL Plt Count (182-369) K/mm3 MPV (9.4-12.3) fl Neutrophils % (Manual) (40-60) % Band Neutrophils % (0-10) % Lymphocytes % (Manual) (20-40) % Atypical Lymphs % % Monocytes % (Manual) (2-10) % Eosinophils % (Manual) (0.7-5.8) % Basophils % (Manual) (0.1-1.2) Platelet Estimate RBC Morph Comment D-Dimer, Quantitative (0.19-0.50) mg/L Sodium (136-145) mEq/L Potassium (3.5-5.1) mEq/L Chloride (98-107) mEq/L Carbon Dioxide (21-32) mEq/L Anion Gap (5-15) BUN (7-18) mg/dL Creatinine (0.55-1.02) mg/dL Est Cr Clr Drug Dosing mL/min Estimated GFR (MDRD) (>60) mL/min BUN/Creatinine Ratio (14-18) Glucose (74-106) mg/dL Calcium (8.5-10.1) mg/dL Magnesium (1.8-2.4) mg/dl Total Bilirubin (0.2-1.0) mg/dL AST (15-37) U/L ALT (14-59) U/L Alkaline Phosphatase (46-116) U/L Troponin I < 0.017 (0.00-0.056) ng/mL Total Protein (6.4-8.2) g/dl Albumin (3.4-5.0) g/dl Globulin gm/dL Albumin/Globulin Ratio (1-2) TSH 3rd Generation (0.358-3.74) uIU/mL Urine Color Yellow (Yellow) Urine Appearance Clear (Clear) Urine pH 8.5 H (5.0-8.0) Ur Specific [place] 1.015 (1.005-1.030) Urine Protein Negative (Negative) Urine Glucose (UA) Negative (Negative) Urine Ketones Negative (Negative) Urine Occult Blood Negative (Negative) Urine Nitrite Negative (Negative) Urine Bilirubin Negative (Negative) Urine Urobilinogen 0.2 (0.2-1.0) Ur Leukocyte Esterase Negative (Negative) Urine RBC Not seen (0-5) /hpf Urine WBC Not seen (0-5) /hpf Ur Epithelial Cells 0-5 (0-5) /hpf Urine Bacteria Few (FEW) /hpf Urine Mucus Few (FEW) /hpf Urine Opiates Screen Negative (YSNMOX=492) Ur Buprenorphine Scrn Negative (CUTOFF=10) Ur Oxycodone Screen Negative (LYP8JK=725) Urine Methadone Screen Negative (PUZDHF=377) Ur Propoxyphene Screen Negative (GTVZGA=590) Ur Barbiturates Screen Negative (KMVTVF=206) Ur Tricyclics Screen Negative (AGNVVL=221) Ur Phencyclidine Scrn Negative (CUTOFF=25) Ur Amphetamine Screen Negative (AHXZQL=195) U Methamphetamines Scrn Negative (ZFMQGR=194) U Benzodiazepines Scrn Negative (XDBZIF=302) U Cocaine Metab Screen Negative (CRMGCG=810) U Marijuana (THC) Screen Negative (CUTOFF=50) Ethyl Alcohol (0.00) gm% Meds: Medications Discontinued Medications Generic Name Dose Route Start Last Admin Trade Name Freq PRN Reason Stop Dose Admin Acetaminophen 650 mg 03/08/19 15:52 03/08/19 15:59 Tylenol PO 03/08/19 15:53 650 mg NOW ONE Administration Lactated Ringer's 1,000 mls @ 999 mls/hr 03/08/19 13:04 03/08/19 13:15 Ringers, Lactated IV 03/08/19 14:04 999 mls/hr .BOLUS ONE Administration Sodium Chloride 100 mls @ 75 mls/hr 03/08/19 14:15 03/08/19 14:24 Normal Saline IV 75 mls/hr ASDIRECTED GIL Administration Lactated Ringer's 500 mls @ 999 mls/hr 03/08/19 16:40 03/08/19 16:40 Ringers, Lactated IV 03/08/19 17:10 999 mls/hr .BOLUS ONE Administration Iohexol 75 ml 03/08/19 14:13 03/08/19 14:24 Omnipaque IVPUSH 03/08/19 14:14 75 ml ONETIME ONE Administration Sodium Chloride 10 ml 03/08/19 14:13 03/08/19 14:24 Saline Flush FLUSH 10 ml ONETIME PRN Administration IV FLUSH - Radiology Interpretation Free Text/Narrative:: CT chest Technique: Multiple axial sections were obtained from above the lung apices inferiorly through the lung bases. Intravenous contrast was utilized. Study has been performed as a pulmonary angiogram protocol. Findings: Small portion of the visualized upper abdominal structures shows evidence of previous gastric surgery as well as cholecystectomy. Pulmonary arteries are fairly well-opacified. No filling defects are seen to indicate pulmonary embolism. Mediastinum and hilar region show no adenopathy or mass. No pericardial thickening is seen. No axillary adenopathy is identified. Lungs are clear. No acute parenchymal change is seen. No pleural effusions are seen. Bone window settings were reviewed showing no acute osseous abnormality. Impression: 1. No findings of pulmonary embolism. 2. Nothing acute is seen on CT study of the chest. Chest: Portable view of the chest was obtained. Comparison: Prior chest x-ray of 03/29/17. Heart size and mediastinum are normal. Lungs are clear. Bony structures are grossly intact. Impression: 1. Nothing acute is seen on portable chest x-ray. Head CT Technique: Multiple axial sections through the brain were obtained. Intravenous contrast was not utilized. Comparison: Prior head CT study of 02/22/18. Findings: Ventricles along with basal cisterns and sulci over the convexities are within normal limits for the patient's age. No abnormal parenchymal densities are seen. No evidence of intracranial hemorrhage. No midline shift or mass effect is seen. Bone window settings were reviewed which show no acute calvarial abnormality. Visualized paranasal sinuses are clear. Mastoid sinuses are also clear. Soft tissue swelling appears to be present within the posterior right scalp. Impression: 1. Soft tissue swelling within the posterior right scalp. 2. No acute intracranial abnormality is seen. - Re-Assessments/Exams Free Text/Narrative Re-Assessment/Exam: 03/08/19 17:28 Reviewed the labs, ekg and imaging with the patient. Syncopal etiology still unclear at this time. Recommend d/c lasix as this is not helping with her syncopal episodes and her b/p is on the lower end. Recommend compression stockings for edema. Will discharge home at this time. Discharge instructions as documented. Departure - Departure Time of Disposition: 17:30 Disposition: Home, Self-Care 01 Condition: Good Clinical Impression: Syncope Qualifiers: Syncope type: unspecified Qualified Code(s): R55 - Syncope and collapse - Discharge Information *PRESCRIPTION DRUG MONITORING PROGRAM REVIEWED*: No *COPY OF PRESCRIPTION DRUG MONITORING REPORT IN PATIENT FARAZ: No Instructions: Syncope, [id number] Referrals: Alejandra Rogel PA [Primary Care Provider] - Forms: ED Department Discharge Additional Instructions: Recommend stopping your lasix. with you blood pressure running low and your syncopal episodes lasix can exacerbate these symptoms. Recommend elevation and genia hose for the swelling in your feet as needed. Follow-up with your PCP next week for a recheck of your symptoms. Make sure you are drinking plenty of fluids. Please return to the ER should your symptoms change or worsen.
[2019-03-08] MEDS ORDERED: Acetaminophen 325 MG Tab PO ONE (15:52)
[2019-03-08] MEDS ORDERED: Lactated Ringers 500 ML IV ONE (16:40)
[2019-03-08 17:41] VITALS: BP 105/67
== END 2019-03-08 17:51 | disposition home or self-care (01) ==
LOC: SUPCPDRO 12:33 → JD.ED 12:33
DX: R55 Syncope and collapse (principal); F32.9 Major depressive disorder, single episode, unspecified; Z79.899 Other long term (current) drug therapy
CPT/HCPCS: 36415; 70450; 71045; 71275; 80053; 80306; 81001; 83735; 84443; 84484; 85007; 85027; 85379; 93005; 96360; 96361; 99285; A9270; G0480; J7030; J7120; Q9967

== ENCOUNTER 2019-07-30 18:22 | Emergency (ER) | payer OTHER ==
[2019-07-30 18:38] VITALS: PULSE 78
[2019-07-30] MEDS ORDERED: Aspirin 81 MG Tab.Chew PO ONE (18:45)
[2019-07-30] MEDS ORDERED: HYDROmorphone 0.5 MG/0.5 ML Syringe IVPUSH ONE (18:46)
[2019-07-30] MEDS: Nitroglycerin 0.4 MG Tab.SL SL PRN ×3 (18:52→19:06)
[2019-07-30] MEDS: Sodium Chloride 0.9% 10 ML Syringe FLUSH PRN ×2 (18:53→19:55)
[2019-07-30 19:07] VITALS: BP 117/63
--- NOTE | 2019-07-30 19:16 | EDM.PDOC ---
<Dario Velazquez - Last Filed: 07/30/19 19:25> ED HPI GENERAL MEDICAL PROBLEM - General Chief Complaint: Chest Pain Stated Complaint: CHEST PAIN Time Seen by Provider: 07/30/19 18:42 Source of Information: Reports: Patient History Limitations: Reports: No Limitations - History of Present Illness INITIAL COMMENTS - FREE TEXT/NARRATIVE: The patient presents with chest pain and shortness of breath. She said the pain started about and hour ago. She had pain in her neck first this afternoon and now it is in her chest. She has pressure like an elephant is sitting on her chest. She is short of breath. She has no history of IA but she does have a history of syncope. A cause has not bee found. She has no fever, chills, cough , congestion, runny nose, abdominal pain, nausea or vomiting. She does not smoke. Middle Chest Pain Score (Numeric/FACES): 9 - Related Data Allergies Allergy/AdvReac Type Severity Reaction Status Date / Time animal dander Allergy Cannot Verified 03/08/19 13:03 Remember Seasonal allergies Allergy Other Uncoded 03/08/19 13:03 Home Meds: Home Meds L.acidoph,Paracasei, B.lactis [Probiotic] 1 cap PO DAILY 03/21/17 [History] Magnesium Oxide 400 mg PO DAILY 06/27/17 [History] Topiramate 50 mg PO QAM 06/27/17 [History] Topiramate [Topamax] 75 mg PO QPM 06/27/17 [History] Cholecalciferol (Vitamin D3) [Vitamin D3] 2,000 unit PO DAILY 02/23/18 [History] Biotin 1 cap PO DAILY 03/08/19 [History] Cetirizine HCl [Zyrtec] 10 mg PO DAILY 03/08/19 [History] Furosemide [Lasix] 20 mg PO DAILY 03/08/19 [History] Kerotin 1 tab PO DAILY 03/08/19 [History] Potassium 99 mg PO DAILY 03/08/19 [History] Rizatriptan Benzoate [Rizatriptan] 10 mg PO ASDIRECTED PRN 03/08/19 [History] Collagen, Hydrolysate (Bovine) [Collagen Hydrolysate] 1 gram PO DAILY 07/30/19 [ History] Cyanocobalamin (Vitamin B-12) [Vitamin B12] 5,000 mcg PO ASDIRECTED 07/30/19 [ History] Dicyclomine [Bentyl] 20 mg PO Q6H PRN #8 tablet 07/30/19 [Rx] Multivitamin [Poly-Vitamin] 1 tab PO DAILY 07/30/19 [History] Past Medical History HEENT History: Reports: Impaired Vision Other HEENT History: Wears glasses occasionally Cardiovascular History: Reports: Other (See Below) Other Cardiovascular History: lower extremity swelling Respiratory History: Reports: Other (See Below) Other Respiratory History: acute bronchitis, bacterial pneumonia Gastrointestinal History: Reports: Helicobacter Pylori Other Gastrointestinal History: abdominal pain Genitourinary History: Reports: None CANDY MAKER History: Reports: Other CANDY MAKER History: 5x Musculoskeletal History: Reports: Other (See Below) Other Musculoskeletal History: bulging disc and protruding disc C3,C4,C6,C7, T1, T2 which Causes numbness in 3 fingers of right hand. Neurological History: Reports: Concussion, Migraines Other Neuro History: migraines since or . Mild concussion 2013. Psychiatric History: Reports: Depression Other Psychiatric History: Not medicated for it - refuses. Endocrine/Metabolic History: Reports: Obesity/BMI 30+ Other Endocrine/Metabolic History: Newly found "abnormality" on thyroid - per MRI 03/21. Hematologic History: Reports: None Immunologic History: Reports: None Oncologic (Cancer) History: Reports: None Dermatologic History: Reports: None - Infectious Disease History Infectious Disease History: Reports: Chicken Pox, Measles, Mumps - Past Surgical History Head Surgeries/Procedures: Reports: None HEENT Surgical History: Reports: Tonsillectomy GI Surgical History: Reports: Bariatric Procedure, Cholecystectomy Other GI Surgeries/Procedures: gastric sleeve, Jul 2018. Female Surgical History: Reports: Hysterectomy Social & Family History - Family History Family Medical History: Noncontributory Cardiac: Reports: Hypertension Endocrine/Metabolic: Reports: Diabetes, type II - Tobacco Use Smoking Status *Q: Never Smoker - Caffeine Use Caffeine Use: Reports: Coffee Other Caffeine Use: cup/day - Recreational Drug Use Recreational Drug Use: No ED ROS GENERAL - Review of Systems Review Of Systems: See Below Constitutional: Reports: No Symptoms HEENT: Reports: No Symptoms Respiratory: Reports: Shortness of Breath Cardiovascular: Reports: Chest Pain Endocrine: Reports: No Symptoms GI/Abdominal: Reports: No Symptoms : Reports: No Symptoms Musculoskeletal: Reports: No Symptoms Skin: Reports: No Symptoms ED EXAM, GENERAL - Physical Exam Exam: See Below Exam Limited By: No Limitations General Appearance: Alert, Moderate Distress Ears: Normal External Exam Nose: Normal Inspection Head: Atraumatic, Normocephalic Neck: Normal Inspection, Supple, Non-Tender Respiratory/Chest: No Respiratory Distress, Lungs Clear, Normal Breath Sounds Cardiovascular: Regular Rate, Rhythm, No Edema, No Murmur GI/Abdominal: Soft, Non-Tender, No Organomegaly, No Mass Back Exam: Normal Inspection Extremities: Normal Inspection EKG INTERPRETATION EKG Date: 07/30/19 Time: 18:35 Rhythm: NSR Rate (Beats/Min): 77 [place]: Normal P-Wave: Present QRS: Normal ST-T: Other (ST depression in the lateral leads) EKG Interpretation Comments: No change from prior EKG Course - Vital Signs Last Recorded V/S: Last Vital Signs Temp 35.8 C 07/30/19 18:37 Pulse 78 07/30/19 18:37 Resp 19 07/30/19 18:37 BP 117/63 07/30/19 19:06 Pulse Ox 100 07/30/19 18:45 - Orders/Labs/Meds Orders: Active Orders 24 hr Category Date Time Status Cardiac Monitoring [RC] . DIRECTED Care 07/30/19 18:45 Active EKG Documentation Completion [RC] STAT Care 07/30/19 18:46 Active Oxygen Therapy [RC] PRN Care 07/30/19 18:45 Active Peripheral IV Care [RC] . DIRECTED Care 07/30/19 18:46 Active Chest 1V Frontal [CR] Stat Exams 07/30/19 18:46 Taken Dextrose 5%-0.9% NaCl [Dextrose 5%-Normal Saline] 1,000 Med 07/30/19 21:45 Active ml IV ASDIRECTED Nitroglycerin [Nitrostat] Med 07/30/19 18:45 Active 0.4 mg SL Q5M PRN Sodium Chloride 0.9% [Normal Saline] 100 ml Med 07/30/19 19:45 Active IV ASDIRECTED Sodium Chloride 0.9% [Saline Flush] Med 07/30/19 18:45 Active 10 ml FLUSH ASDIRECTED PRN Peripheral IV Insertion Adult [OM.PC] Stat Oth 07/30/19 18:45 Ordered Medication Orders Sodium Chloride (Normal Saline) 100 mls @ 3 mls/sec IV ASDIRECTED [facility] Last Admin: 07/30/19 19:55 Dose: 3 mls/sec Dextrose/Sodium Chloride (Dextrose 5%-Normal Saline) 1,000 mls @ 150 mls/hr IV ASDIRECTED GIL Last Admin: 07/30/19 21:49 Dose: 150 mls/hr Nitroglycerin (Nitrostat) 0.4 mg SL Q5M PRN PRN Reason: Chest Pain Stop: 07/31/19 18:45 Last Admin: 07/30/19 19:06 Dose: 0.4 mg Admin: 07/30/19 18:58 Dose: 0.4 mg Admin: 07/30/19 18:52 Dose: 0.4 mg Sodium Chloride (Saline Flush) 10 ml FLUSH ASDIRECTED PRN PRN Reason: Keep Vein Open Last Admin: 07/30/19 19:55 Dose: 10 ml Admin: 07/30/19 18:53 Dose: 10 ml Labs: Laboratory Tests 07/30/19 07/30/19 07/30/19 Range/Units 18:45 18:45 18:45 WBC 6.05 (3.98-10.04) K/mm3 RBC 5.26 H (3.98-5.22) M/mm3 Hgb 13.5 (11.2-15.7) gm/dl Hct 42.0 (34.1-44.9) % MCV 79.8 D (79.4-94.8) fl MCH 25.7 (25.6-32.2) pg MCHC 32.1 L (32.2-35.5) g/dl RDW Std Deviation 40.9 (36.4-46.3) fL Plt Count 275 D (182-369) K/mm3 MPV 12.1 (9.4-12.3) fl Neut % (Auto) 53.4 (34.0-71.1) % Lymph % (Auto) 38.5 (19.3-51.7) % Brule % (Auto) 6.6 (4.7-12.5) % Eos % (Auto) 1.2 (0.7-5.8) Baso % (Auto) 0.3 (0.1-1.2) % Neut # (Auto) 3.23 (1.56-6.13) K/mm3 Lymph # (Auto) 2.33 (1.18-3.74) K/mm3 Brule # (Auto) 0.40 H (0.24-0.36) K/mm3 Eos # (Auto) 0.07 (0.04-0.36) K/mm3 Baso # (Auto) 0.02 (0.01-0.08) K/mm3 D-Dimer, Quantitative 1.42 H (0.19-0.50) mg/L Sodium 141 (136-145) mEq/L Potassium 3.4 L (3.5-5.1) mEq/L Chloride 105 (98-107) mEq/L Carbon Dioxide 23 (21-32) mEq/L Anion Gap 16.4 H (5-15) BUN 18 (7-18) mg/dL Creatinine 1.1 H (0.55-1.02) mg/dL Est Cr Clr Drug Dosing 58.84 mL/min Estimated GFR (MDRD) 52 (>60) mL/min BUN/Creatinine Ratio 16.4 (14-18) Glucose 112 H (74-106) mg/dL Calcium 9.9 (8.5-10.1) mg/dL Total Bilirubin 0.4 (0.2-1.0) mg/dL GGT (5-55) U/L AST 49 H (15-37) U/L ALT 76 H (14-59) U/L Alkaline Phosphatase 209 H (46-116) U/L Creatine Kinase (26-192) U/L CK-MB (CK-2) (0-3.6) ng/ml Troponin I < 0.017 (0.00-0.056) ng/mL Total Protein 8.5 H (6.4-8.2) g/dl Albumin 4.0 (3.4-5.0) g/dl Globulin 4.5 gm/dL Albumin/Globulin Ratio 0.9 L (1-2) Amylase (25-115) U/L 07/30/19 07/30/19 07/30/19 Range/Units 18:45 21:50 21:50 WBC (3.98-10.04) K/mm3 RBC (3.98-5.22) M/mm3 Hgb (11.2-15.7) gm/dl Hct (34.1-44.9) % MCV (79.4-94.8) fl MCH (25.6-32.2) pg MCHC (32.2-35.5) g/dl RDW Std Deviation (36.4-46.3) fL Plt Count (182-369) K/mm3 MPV (9.4-12.3) fl Neut % (Auto) (34.0-71.1) % Lymph % (Auto) (19.3-51.7) % Brule % (Auto) (4.7-12.5) % Eos % (Auto) (0.7-5.8) Baso % (Auto) (0.1-1.2) % Neut # (Auto) (1.56-6.13) K/mm3 Lymph # (Auto) (1.18-3.74) K/mm3 Brule # (Auto) (0.24-0.36) K/mm3 Eos # (Auto) (0.04-0.36) K/mm3 Baso # (Auto) (0.01-0.08) K/mm3 D-Dimer, Quantitative (0.19-0.50) mg/L Sodium (136-145) mEq/L Potassium (3.5-5.1) mEq/L Chloride (98-107) mEq/L Carbon Dioxide (21-32) mEq/L Anion Gap (5-15) BUN (7-18) mg/dL Creatinine (0.55-1.02) mg/dL Est Cr Clr Drug Dosing mL/min Estimated GFR (MDRD) (>60) mL/min BUN/Creatinine Ratio (14-18) Glucose (74-106) mg/dL Calcium (8.5-10.1) mg/dL Total Bilirubin (0.2-1.0) mg/dL GGT 138 H (5-55) U/L AST (15-37) U/L ALT (14-59) U/L Alkaline Phosphatase (46-116) U/L Creatine Kinase 84 (26-192) U/L CK-MB (CK-2) < 0.5 (0-3.6) ng/ml Troponin I < 0.017 (0.00-0.056) ng/mL Total Protein (6.4-8.2) g/dl Albumin (3.4-5.0) g/dl Globulin gm/dL Albumin/Globulin Ratio (1-2) Amylase 74 (25-115) U/L Meds: Medications Generic Name Dose Route Start Last Admin Trade Name Freq PRN Reason Stop Dose Admin Sodium Chloride 100 mls @ 3 mls/sec 07/30/19 19:45 07/30/19 19:55 Normal Saline IV 3 mls/sec ASDIRECTED GIL Administration Dextrose/Sodium Chloride 1,000 mls @ 150 mls/hr 07/30/19 21:45 07/30/19 21:49 Dextrose 5%-Normal Saline IV 150 mls/hr ASDIRECTED GIL Administration Nitroglycerin 0.4 mg 07/30/19 18:45 07/30/19 19:06 Nitrostat SL 07/31/19 18:45 0.4 mg Q5M PRN Administration Chest Pain Sodium Chloride 10 ml 07/30/19 18:45 07/30/19 19:55 Saline Flush FLUSH 10 ml ASDIRECTED PRN Administration Keep Vein Open Discontinued Medications Generic Name Dose Route Start Last Admin Trade Name Freq PRN Reason Stop Dose Admin Aspirin 324 mg 07/30/19 18:45 07/30/19 18:51 Aspirin PO 07/30/19 18:46 324 mg ONETIME ONE Administration Dicyclomine HCl 20 mg 07/30/19 23:17 Bentyl PO 07/30/19 23:18 ONETIME ONE Fentanyl 50 mcg 07/30/19 22:14 07/30/19 22:44 Sublimaze IVPUSH 07/30/19 22:15 50 mcg ONETIME ONE Administration Hydromorphone HCl 0.5 mg 07/30/19 18:46 07/30/19 18:52 Dilaudid IVPUSH 07/30/19 18:47 0.5 mg ONETIME ONE Administration Hydromorphone HCl 1 mg 07/30/19 21:36 07/30/19 21:50 Dilaudid IVPUSH 07/30/19 21:37 1 mg ONETIME ONE Administration Hyoscyamine 0.125 mg 07/30/19 22:14 07/30/19 22:44 Hyomax-Sl SL 07/30/19 22:15 0.125 mg ONETIME ONE Administration Iopamidol 100 ml 07/30/19 19:41 07/30/19 19:55 Isovue-370 (76%) IVPUSH 07/30/19 19:42 100 ml ONETIME ONE Administration Metoclopramide HCl 10 mg 07/30/19 21:36 07/30/19 21:50 Reglan IVPUSH 07/30/19 21:37 10 mg ONETIME ONE Administration - Re-Assessments/Exams Free Text/Narrative Re-Assessment/Exam: 07/30/19 19:23 I ordered an IV saline lock, EKG, CXR and labs. Her EKG shows a NSR with some ST depression in the lateral leads. No change from prior. Her CXR shows nothing acute. 07/30/19 19:26 Her CBC looks good. Her D-dimer was elevated at 1.49. Her K was low at 3.4. Her creatine was elevated at 1.1. Her AST was elevated at 49. His Alt was elevated at 76. Her alk phos was elevated at 209. Her troponin is negative. I have ordered a CT angio of her chest. It is change of shift. Dr Phillips to take over. Departure - Departure Disposition: Home, Self-Care 01 Clinical Impression: Non-cardiac chest pain, Hiatal hernia with GERD Prescriptions: Dicyclomine [Bentyl] 20 mg PO Q6H PRN #8 tablet PRN Reason: Abdominal cramps/diarrhea Instructions: Hiatal Hernia Referrals: Cyndi Berry PA-C [Primary Care Provider] - Forms: ED Department Discharge Additional Instructions: Evaluation the emergency room tonight in regards to acute onset of severe retrosternal pressure discomfort rating up into her neck and throat. Initial ECG and chest x-ray were within normal limits. Initial cardiac markers also came back negative. The history is strongly suggestive of gastrointestinal source of chest pain. CT of the chest was ordered by Dr. Velazquez due to a mildly elevated d-dimer assay which is a poor test and often is positive or false positive for pulmonary embolism. It can be elevated from another infective reasons it can be elevated fairly minor trauma or soft tissue contusion etc. Yours was minimally elevated. CT proved negative for any signs of hiatal hernia. It also revealed normal heart. It did reveal a hiatal hernia with a dilated esophagus. He seemed to be somewhat better after you vomited spontaneously. You were treated with medications Reglan 7.5 mg for nausea relief and Dilaudid 1 mg IV for pain relief suspect a hiatal hernia is the source of the pain. That you further treated with fentanyl 50 g IV for further pain relief which seemed to help better than the Dilaudid and Reglan. He will given Bentyl 20 mg at time of discharge to make sure that spasm in the head of the stomach settles down completely overnight. Hiatal hernia is prone to reoccurrence particularly with a full stomach. Try not to have anything in her stomach before going to bed for at least 3 hours prior to sleep. I did write a prescription for Bentyl tablets to take home. May use 1 tablet every 6 hours if needed for similar type pain. 1 tablet is not effectual in an hour to an hour and 15 minutes after taking it he should come to the ED. Of note may still feels some soreness in the pit of your stomach for another couple of days and then it should dissipate. Things to avoid her things like soda pop due to the, non-dioxide causing her to rise. Acidic foods that might also not be tolerated well. Gas-forming foods such as onions, cabbage , coleslaw, cucumbers, radishes , and [id number] gas forming foods. - My Orders Last 24 Hours: My Active Orders 07/30/19 19:45 Sodium Chloride 0.9% [Normal Saline] 100 ml IV ASDIRECTED 07/30/19 21:45 Dextrose 5%-0.9% NaCl [Dextrose 5%-Normal Saline] 1,000 ml IV ASDIRECTED - Assessment/Plan Last 24 Hours: My Active Orders 07/30/19 19:45 Sodium Chloride 0.9% [Normal Saline] 100 ml IV ASDIRECTED 07/30/19 21:45 Dextrose 5%-0.9% NaCl [Dextrose 5%-Normal Saline] 1,000 ml IV ASDIRECTED <John Phillips - Last Filed: 07/30/19 23:43> ED HPI GENERAL MEDICAL PROBLEM - History of Present Illness Onset: Today, Sudden Onset Date: 07/30/19 Onset Time: 17:00 (CHIKI dinner today but did not have any supper yet. No odynophagia.) Duration: Minutes:, Getting Worse Location: Reports: Chest (Central chest pain rating to to her back and upper neck and throat.) Quality: Reports: Ache, Pressure, Other Severity: Moderate Improves with: Reports: None Worsens with: Reports: Other (Seems to be worse with lying down.) Context: Reports: Other. Denies: Activity, Exercise, Lifting, Sick Contact, Trauma Associated Symptoms: Reports: Chest Pain, Loss of Appetite, Malaise, Nausea/ Vomiting (Nausea with no vomiting), Shortness of Breath (Can't take a full deep breath as it makes the pain worse.), Weakness. 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 She has had numerous investigations which are not shed light on this. I would suggest that a tilt table test be done on her to see if there is any form of autonomic nervous system dysfunction. ) Social & Family History - Living Situation & Occupation Living situation: Reports: Occupation: Employed ED ROS GENERAL - Review of Systems Respiratory: Denies: Wheezing, Pleuritic Chest Pain, Cough, Sputum GI/Abdominal: Reports: Abdominal Pain ( In the pit of her stomach. ) ED EXAM, GENERAL - Physical Exam General Appearance: Other (Temperature is 35.8 which is likely incorrect. Pulse is 78 respiratory is 19 with sats are 100% on room air. BP is 140/78.) Eye Exam: Bilateral Eye: Normal Inspection, PERRL Respiratory/Chest: Chest Non-Tender Peripheral Pulses: 3+: Posterior Tibial (L), Posterior Tibial (R), Dorsalis Pedis (L), Dorsalis Pedis (R) GI/Abdominal: Non-Tender, Tender (I found significant tenderness on palpation in the epigastrium right this if he sternal process that) Course - Radiology Interpretation Free Text/Narrative:: 49-year-old female presents to the ED for evaluation of sudden onset of severe central chest pressure discomfort rating up into her neck and throat. Associated nausea without vomiting. A feeling of sense of needing to burp and belch but unable to do so with any relief. No odynophagia. She has not eaten supper yet. She has no history of cardiac disease. - Re-Assessments/Exams Free Text/Narrative Re-Assessment/Exam: 07/30/19 19:35: Fair symptom Dr. VELAZQUEZ at change of shift. Patient presented in the ED with retrosternal chest pressure discomfort rating up into her neck and throat. She was found to have an elevated d-dimer as part of her workup and therefore is going to CT for CT pulmonary angiogram. ECG reviewed by me shows sinus rhythm at 77/m. There is a Q-wave in lead V1 and our supply and wave in V2 which is likely a normal variant. Decreased voltage throughout both the precordial and limb leads. There is mildl ST-segment depression in lead 2, leads V4 to be 6 which are less than 0.5 mm. There are nonspecific T-wave abnormalities in numerous lesions particularly V2. QTC is mildly prolonged. 07/30/19 20:26 CT of the chest per pulmonary and gram technique was done. Pulmonary arteries are well-opacified. No filling defects are seen to indicate pulmonary emboli. Mediastinum and hilar regions appear to be within normal limits. No aortic aneurysm is noted. No pericardial thickening is seen. Small hiatal hernia is appreciated in the lower retrosternal space.. Gastric surgery is evident. Surgical clips are seen from prior cholecystectomy. Lungs show no acute parenchymal changes. No pleural effusions or pneumothorax. No acute osseous abnormality is appreciated. Mild scattered degenerative changes throughout the thoracic spine is appreciated. 07/30/19 21:36 patient is currently having a lot of epigastric pain pressure discomfort and strong feeling of wanting to vomit. Strongly suspect she is experiencing pain related to a hiatal hernia versus her heart. I will have repeat cardiac markers done as are some mild ST segment changes on her ECG. In time I will give her Dilaudid 1 mg IV with Reglan 7.5 mg IV for nausea vomiting and the pain in her epigastrium. On examination she is having pain primarily in the pit of her epigastrium pain worse by deep palpation in this area. 07/30/19 22:15 the GGT did come back elevated at 138. Therefore there is some concerns for early common bile duct obstruction. This was not evident on CT scan. Amylase has been ordered. She did vomit some bilious emesis. Feels better as far as the nausea goes but still having significant pain 5 out of 10 in the epigastrium. Will order fentanyl 50 g IV and Levsin 0.125 mg sublingual. Working diagnosis is hiatal hernia. 07/30/19 22:53 Second set of cardiac markers came back normal CK-MB fraction less than 0.5 and troponin I of less than 0.017. Amylase came back at 74. 07/30/19 23:18 feeling much improved at this time. She is able to take a full deep breath with only very little discomfort in the pit of her stomach. The concern with mildly elevated liver enzymes and GGT is that she may be passing some Celexa the common bile duct is causing recurrent pain syndrome as well. I suspect most of this is secondary to hiatal hernia however. I'm going to give her Bentyl 20 mg tablet by mouth now. Prescription will be written for a further tablets that she can have on hand in case of similar occurrence as hiatal hernia is likely to recur. Departure - Departure Time of Disposition: 23:19 Reason for Transfer *Q: Other Condition: Fair
[2019-07-30] MEDS ORDERED: Iopamidol 755 Mg/ML 100 ML Bottle IVPUSH ONE (19:41)
[2019-07-30] MEDS ORDERED: Sodium Chloride 0.9% 100 ML IV SCH (19:45)
--- NOTE | 2019-07-30 20:14 | CT ---
CT chest Technique: Multiple axial sections through the chest were obtained. Intravenous contrast was utilized. Study performed as a pulmonary angiogram protocol. Findings: Pulmonary arteries are well opacified. No filling defects are seen to indicate pulmonary embolism. Mediastinum and hilar regions appear within normal limits. No aortic aneurysm is noted. No pericardial thickening is seen. Small hiatal hernia is noted. Gastric surgery is present. Surgical clips are seen from prior cholecystectomy. Lungs show no acute parenchymal change. No pleural effusions or pneumothorax is seen. No acute osseous abnormality is appreciated. Mild scattered degenerative change throughout the thoracic spine is seen. Impression: 1. No findings of pulmonary embolism. 2. Other findings which are believed to be incidental. 3. Nothing acute is seen on CT study of the chest performed as a pulmonary angiogram protocol. Diagnostic code #2
[2019-07-30] MEDS ORDERED: Metoclopramide 10 MG/2 ML SDV IVPUSH ONE (21:36)
[2019-07-30] MEDS ORDERED: HYDROmorphone 1 MG/ML Syringe IVPUSH ONE (21:36)
[2019-07-30] MEDS ORDERED: Dextrose 5%-0.9% NaCl 1,000 ML IV SCH (21:45)
[2019-07-30] MEDS ORDERED: Hyoscyamine 0.125 MG Tab.SL SL ONE (22:14)
[2019-07-30] MEDS ORDERED: fentaNYL 100 MCG/2 ML SDV IVPUSH ONE (22:14)
[2019-07-30] MEDS ORDERED: Dicyclomine 10 MG Cap PO ONE (23:17)
--- NOTE | 2019-07-31 07:39 | CR ---
Chest: Portable view of the chest was obtained. Comparison: Prior chest x-ray of 03/08/19. Heart size and mediastinum are within normal limits for portable technique. Lungs are clear with no acute parenchymal change. Bony structures are grossly intact. Surgical clips are seen from previous cholecystectomy. Impression: 1. Nothing acute is appreciated on portable chest x-ray. Diagnostic code #2
== END 2019-07-30 23:50 | disposition home or self-care (01) ==
LOC: JD.ED 18:22
DX: K21.9 Gastro-esophageal reflux disease without esophagitis (principal); K44.9 Diaphragmatic hernia without obstruction or gangrene; G43.909 Migraine, unspecified, not intractable, without status migrainosus; E66.9 Obesity, unspecified; Z68.34 Body mass index [BMI] 34.0-34.9, adult; Z91.048 Other nonmedicinal substance allergy status; Z91.09 Other allergy status, other than to drugs and biological substances; Z79.899 Other long term (current) drug therapy
CPT/HCPCS: 36415; 71045; 71045-26; 71275; 71275-26; 80053; 82150; 82550; 82553; 82977; 84484; 85025; 85379; 93005; 93010; 96361; 96374; 96375; 96376; 99284; 99285-25; A9270-GY; J1170; J2765; J3010; J7030; J7042; Q9967